=== PATIENT | female | born 1955 | race Caucasian/White ===

== ENCOUNTER 2019-12-26 17:24 | Emergency (ER) | payer BC, SELFPAY ==
[2019-12-26 17:26] VITALS: BP 146/75; PULSE 81; RESP 18; TEMP 36.8; O2SAT 98
--- NOTE | 2019-12-26 17:33 | ED.FEMALEGU ---
HPI - Female Genitourinary General Chief complaint: Urogenital-Female Stated complaint: YEAST INFECTION SYMPTOMS Time Seen by Provider: 12/26/19 17:35 Source: patient and RN notes reviewed History of Present Illness HPI Narrative: Patient is 64-year-old female that presents the urgent care with complaints of a vaginal yeast infection. Patient states that it started approximately 2 to 3 days ago after she took a dose of fluconazole approximately 3 weeks ago. Patient states that she has not been on any recent antibiotics but has been eating more chocolate and thinks that that is attributing to her yeast infection. Patient states that she has extreme itchiness and irritation but denies of any thick vaginal discharge. Patient states that she has followed up with her PCP but they have not returned her phone call to retreat the vaginal yeast infection. Denies of any dysuria, abdominal pain, blood in the urine. No other acute complaints. No acute distress noted. Patient aware of the plan of care. Related Data Home Medications Medication Instructions Recorded Confirmed Monastat Supp 12/26/19 levothyroxine 112 mcg PO DAILY 12/26/19 12/26/19 Allergies Allergy/AdvReac Type Severity Reaction Status Date / Time morphine Allergy Unknown Skin Verified 12/26/19 17:34 irritation Penicillins Allergy Unknown Skin Verified 12/26/19 17:34 irritation Review of Systems Review of Systems: Narrative: CONSTITUTIONAL: Denies fever, chills, or sweats. EYES: Denies visual changes, redness, or discharge. ENT: Denies rhinorrhea, congestion, sore throat, or otalgia. CARDIOVASCULAR: Denies chest pain, palpitations, or edema. RESPIRATORY: Denies cough or dyspnea. GASTROINTESTINAL: Denies abdominal pain, nausea, vomiting, or diarrhea. GENITOURINARY: Denies dysuria or hematuria. Reports of extreme vaginal itchiness SKIN: Denies rash or itching. MUSCULOSKELETAL: Denies back pain, joint pain, or myalgia. NEUROLOGIC: Denies headache, numbness, or weakness. All other systems reviewed are negative, except as documented in HPI. [facility] Past Medical History Medical History (Updated 12/26/19 @ 18:00 by DINO Garrido) Hyperlipidemia LDL goal <100 Hypothyroidism determined by thyroid function test Social History Social History Smoking status: Former smoker Second hand tobacco smoke exposure: No Smoking end date: 09/24/16 Alcohol intake: current Exam Narrative: Exam Narrative: GENERAL: This is a well-nourished, well-developed patient, in no apparent distress. HEAD: normocephalic, atraumatic. EYES: PERRL. Sclera clear/white. Vision is grossly intact. EARS: External ears normal NOSE: External nose normal with no obvious nasal discharge THROAT: Mucous membranes moist NECK: Neck supple CARDIOVASCULAR: Regular rate and rhythm without murmurs, gallops, or rubs. RESPIRATORY: Clear to auscultation. Breath sounds equal bilaterally. No wheezes, rales, or rhonchi. : Refused exam SKIN: warm, intact with no suspicious lesions or rash, good texture and turgor. NEURO: awake, alert, and oriented to person, place and time. There were no obvious focal neurologic abnormalities. EXTREMITIES: No clubbing, cyanosis, or edema. BACK: Negative CVA tenderness Course Vital Signs Vital signs: Vital Signs Temperature 98.2 F 12/26/19 17:26 Pulse Rate 81 12/26/19 17:26 Respiratory Rate 18 12/26/19 17:26 Blood Pressure 146/75 H 12/26/19 17:26 Pulse Oximetry 98 12/26/19 17:26 Temperature 98.2 F 12/26/19 17:26 Pulse Rate 81 12/26/19 17:26 Respiratory Rate 18 12/26/19 17:26 Blood Pressure 146/75 H 12/26/19 17:26 Pulse Oximetry 98 12/26/19 17:26 reviewed-patient is informed that they may have pre-hypertension or hypertension based on a blood pressure reading in the department. I recommend the patient call the primary care provider listed on their disch
== END 2019-12-26 18:04 | disposition home or self-care (01) ==
PROVIDERS: Emergency Provider Nurse Practitioner Family; PCP Family Medicine
DX: B37.3 Candidiasis of vulva and vagina (principal); Z87.891 Personal history of nicotine dependence; E78.5 Hyperlipidemia, unspecified; E03.9 Hypothyroidism, unspecified
CPT/HCPCS: 81003; 99213; G0463

== ENCOUNTER 2020-01-04 10:09 | Emergency (ER) | payer BC, SELFPAY ==
[2020-01-04 10:10] VITALS: BP 142/78; PULSE 88; RESP 20; TEMP 36.4; O2SAT 98
--- NOTE | 2020-01-04 10:21 | ED.GENADULT ---
HPI - General Adult General Chief complaint: Urogenital-Female Stated complaint: YEAST INFECTION Time Seen by Provider: 01/04/20 10:23 Source: patient and RN notes reviewed Mode of arrival: ambulatory Limitations: no limitations History of Present Illness HPI narrative: This is a 64 years old female presents to the office for an evaluation of re current yeast infection. Symptoms include vaginal itchiness, irritate/pain/raws and urinary pain (due to skin irritation). She also reports feeling achy/chills last night. She tried Monistat with no relief. She tried to call her doctor but they have not gotten back to her. She is adamant that this is not a UTI because she had in the past and it does not feel the same. She is not sexually active. She also has hysterectomy. I reviewed patient's previous visit 12/26/2019 HPI - Female Genitourinary General Chief complaint: Urogenital-Female Stated complaint: YEAST INFECTION SYMPTOMS Time Seen by Provider: 12/26/19 17:35 Source: patient and RN notes reviewed History of Present Illness HPI Narrative: Patient is 64-year-old female that presents the urgent care with complaints of a vaginal yeast infection. Patient states that it started approximately 2 to 3 days ago after she took a dose of fluconazole approximately 3 weeks ago. Patient states that she has not been on any recent antibiotics but has been eating more chocolate and thinks that that is attributing to her yeast infection. Patient states that she has extreme itchiness and irritation but denies of any thick vaginal discharge. Patient states that she has followed up with her PCP but they have not returned her phone call to retreat the vaginal yeast infection. Denies of any dysuria, abdominal pain, blood in the urine. No other acute complaints. No acute distress noted. Patient aware of the plan of care. Related Data Home Medications Medication Instructions Recorded Confirmed levothyroxine 112 mcg PO DAILY 12/26/19 01/04/20 Allergies Allergy/AdvReac Type Severity Reaction Status Date / Time morphine Allergy Unknown Skin Verified 01/04/20 10:19 irritation Penicillins Allergy Unknown Skin Verified 01/04/20 10:19 irritation Review of Systems Review of Systems: Narrative: CONSTITUTIONAL: Denies fever. Reports chills, achy feeling ENT: Denies congestion CARDIOVASCULAR: Denies chest pain RESPIRATORY: Denies dyspnea GASTROINTESTINAL: Denies abdominal pain, nausea, vomiting GENITOURINARY: Denies discharge SKIN: Denies rash MUSCULOSKELETAL: Denies acute back pain NEUROLOGIC: Denies lightheaded PMFSH Past Medical History Medical History (Updated 01/04/20 @ 11:30 by DINO Sanderson) Hyperlipidemia LDL goal <100 Hypothyroidism determined by thyroid function test Primary localized osteoarthritis of both knees Surgical History Surgical History (Updated 01/04/20 @ 11:30 by DINO Sanderson) Hx of hysterectomy Family History Family History Sibling Family history of thyroid disease Hypertension Grandparent Diabetes mellitus Acute myocardial infarction Mother Hypertension Family history of chronic obstructive pulmonary disease Father Family history of cardiovascular disease Family history of coronary artery disease Patient's father is in good health Social History Social History Smoking status: Former smoker Second hand tobacco smoke exposure: No Smoking end date: 09/24/16 Alcohol intake: current Comments At time of signature, I agree with nursing past medical, surgical, social and family history. There is no relevant family history pertinent to the presenting complaint. Exam Narrative: Exam Narrative: GENERAL: This is a well-nourished, well-developed patient, in no apparent distress. CARDIOVASCULAR: Regular rate and rhythm without murmurs, gallops, or rubs. RES
== END 2020-01-04 10:56 | disposition home or self-care (01) ==
PROVIDERS: Emergency Provider Nurse Practitioner; PCP Family Medicine
DX: N76.0 Acute vaginitis (principal); Z87.891 Personal history of nicotine dependence; E78.5 Hyperlipidemia, unspecified; E03.9 Hypothyroidism, unspecified; M17.0 Bilateral primary osteoarthritis of knee
CPT/HCPCS: 87661; 99214; G0463

== ENCOUNTER → 2020-11-27 00:49 | Outpatient (CLI) | payer BC, SELFPAY ==
[2020-11-27 19:47] LABS: SARS-CoV-2 RNA PCR Negative
== END ==
PROVIDERS: PCP Physician Assistant; Visit Provider Internal Medicine Gastroenterology
DX: Z01.812 Encounter for preprocedural laboratory examination (principal); Z20.822 Contact with and (suspected) exposure to COVID-19
CPT/HCPCS: C9803; U0003; U0005

== ENCOUNTER 2020-11-30 01:29 | Day surgery (SDC) | payer BC, SELFPAY ==
[2020-11-19 13:24] VITALS: BMI 37.0
[2020-11-30] MEDS: LACTATED RINGERS 1,000 ML 150 ML IV CONT (07:33)
[2020-11-30 07:36] VITALS: BP 150/82; PULSE 105; RESP 20; TEMP 37.2; O2SAT 97; BMI 35.2
--- NOTE | 2020-11-30 07:51 | PM.HPGS ---
History of Present Illness History of Present Illness Consent: Risks, benefits, and alternatives have been discussed and questions answered. Patient agrees to proceed with procedure. Chief complaint: Neoplasm Screening Narrative: Lindsay Landry is a 65 year old female Referred for colon cancer screening Review of Systems Review of Systems: All systems reviewed & are unremarkable except as noted in HPI and below PMFSH Past Medical History Medical History Hyperlipidemia LDL goal <100 Hypothyroidism determined by thyroid function test Kidney stone Obesity Primary localized osteoarthritis of both knees Surgical History Surgical History H/O section History of dilation and curettage numerous after miscarriages Hx of hysterectomy Family History Family History Sibling Family history of thyroid disease Hypertension Grandparent Diabetes mellitus Acute myocardial infarction Mother Hypertension Family history of chronic obstructive pulmonary disease Father Family history of cardiovascular disease Family history of coronary artery disease Patient's father is in good health Social History Social History Smoking status: Never smoker Second hand tobacco smoke exposure: No Smoking end date: 09/24/16 Additional smoking assessment comments: spouse smokes Alcohol intake: never Substance use: never Substance use type: does not use Living arrangements: with family Spiritual care concerns: No Meds Home Medications and Allergies Home Medications Medication Instructions Recorded Confirmed Type diclofenac sodium 75 mg 75 mg PO BID PRN #180 tablet 08/25/20 11/19/20 Rx tablet,delayed release rosuvastatin 10 mg tablet 10 mg PO DAILY #90 tablet 10/08/20 11/19/20 Rx ascorbic acid (vitamin C) 500 mg 500 mg PO DAILY 10/21/20 11/19/20 History tablet calcium carbonate 390 mg calcium 390 mg PO DAILY 10/21/20 11/19/20 History (1,000 mg) tablet cholecalciferol (vitamin D3) 10 10 mcg PO DAILY 10/21/20 11/19/20 History mcg (400 unit) capsule vitamin B complex 1 tablet PO DAILY 10/21/20 11/19/20 History sodium,potassium,mag sulfates 17.5 See Rx Instructions PO .COMPLEX 11/18/20 Rx gram-3.13 gram-1.6 gram oral soln #354 ml levothyroxine [Synthroid] 125 mcg PO DAILY 11/19/20 11/19/20 History Allergies Allergy/AdvReac Type Severity Reaction Status Date / Time morphine Allergy Unknown Skin Verified 11/30/20 07:34 irritation Penicillins Allergy Unknown Skin Verified 11/30/20 07:34 irritation Vital Signs Vital Signs - 24 hr 11/30/20 07:36 Temperature 37.2 C Pulse Rate 105 H Respiratory Rate 20 Blood Pressure 150/82 H Pulse Oximetry 97 Exam Resp: Auscultation: clear to auscultation bilaterally Cardio: Rate: regular rate Rhythm: regular rhythm GI: GI Palp: Yes Soft to palpation and No Tenderness to palpation present (GI) Assessment and Plan Assessment and plan (1) Colon cancer screening: Code(s): Z12.11 - Encounter for screening for malignant neoplasm of colon Status: Acute Assessment and Plan: Colonoscopy with possible biopsy or polypectomy or cautery or injection of substances.
--- NOTE | 2020-11-30 08:26 | WPDANESEPPF ---
Anes - Initial Pre Proc Eval Procedure: Operation Date: 11/30/20 08:30 Proposed Procedures p Screening Colonoscopy - Wander Puente MD Date/Time: 11/30/20 08:26 Surgeon: Wander Puente MD Pre Op Diagnosis: Neoplasm Screening Patient Data Age: 65 Gender: F Height: 5 ft 3 in Weight: 90.1 kg Last Vital Signs Temp 37.2 C 11/30/20 07:36 Pulse 105 H 11/30/20 07:36 Resp 20 11/30/20 07:36 BP 150/82 H 11/30/20 07:36 Pulse Ox 97 11/30/20 07:36 Allergies Allergy/AdvReac Type Severity Reaction Status Date / Time morphine Allergy Unknown Skin Verified 11/30/20 07:34 irritation Penicillins Allergy Unknown Skin Verified 11/30/20 07:34 irritation Home Medications Medication Instructions Recorded Confirmed Type diclofenac sodium 75 mg 75 mg PO BID PRN #180 tablet 08/25/20 11/19/20 Rx tablet,delayed release rosuvastatin 10 mg tablet 10 mg PO DAILY #90 tablet 10/08/20 11/19/20 Rx ascorbic acid (vitamin C) 500 mg 500 mg PO DAILY 10/21/20 11/19/20 History tablet calcium carbonate 390 mg calcium 390 mg PO DAILY 10/21/20 11/19/20 History (1,000 mg) tablet cholecalciferol (vitamin D3) 10 10 mcg PO DAILY 10/21/20 11/19/20 History mcg (400 unit) capsule vitamin B complex 1 tablet PO DAILY 10/21/20 11/19/20 History sodium,potassium,mag sulfates 17.5 See Rx Instructions PO .COMPLEX 11/18/20 Rx gram-3.13 gram-1.6 gram oral soln #354 ml levothyroxine [Synthroid] 125 mcg PO DAILY 11/19/20 11/19/20 History Patient hx anesthesia problems: none Family hx anesthesia problems: none PMFSH Past Medical History Medical History Hyperlipidemia LDL goal <100 Hypothyroidism determined by thyroid function test Kidney stone Obesity Primary localized osteoarthritis of both knees Surgical History Surgical History H/O section History of dilation and curettage numerous after miscarriages Hx of hysterectomy Family History Family History Sibling Family history of thyroid disease Hypertension Grandparent Diabetes mellitus Acute myocardial infarction Mother Hypertension Family history of chronic obstructive pulmonary disease Father Family history of cardiovascular disease Family history of coronary artery disease Patient's father is in good health Social History Social History Smoking status: Never smoker Second hand tobacco smoke exposure: No Smoking end date: 09/24/16 Additional smoking assessment comments: spouse smokes Alcohol intake: never Substance use: never Substance use type: does not use Living arrangements: with family Spiritual care concerns: No Anes - Eval Final PreProcedure Day of Procedure 11/30/20 08:26 Patient weight: obese Heart: regular rate and rhythm Lungs: clear to auscultation Airway: Mallampati scale class II Neurological: alert and oriented Last oral intake: >/= 8 hours ASA classification: III Emergent: no Anesthetic plan: proceed Anesthesia type and monitoring: general GIVS and standard monitoring Informed Consent: The patient's anesthetic plan and its attendant risks and benefits were discussed with the patient/family/POA. Questions were solicited and answers provided to the satisfaction of the patient/family/POA.
[2020-11-30 08:50] VITALS: BP 106/56; PULSE 80; RESP 20; O2SAT 100
[2020-11-30 09:00] VITALS: BP 122/52; PULSE 78; RESP 18; O2SAT 100
[2020-11-30 09:10] VITALS: BP 126/57; PULSE 70; RESP 18; O2SAT 100
== END 2020-11-30 09:30 | disposition home or self-care (01) ==
PROVIDERS: PCP Physician Assistant; Visit Provider Internal Medicine Gastroenterology
PROC: 0DJD8ZZ Inspection of Lower Intestinal Tract, Via Natural or Artificial Opening Endoscopic (ICD-10-PCS; CPT 45378; principal; 2020-11-30 08:30)
DX: Z12.11 Encounter for screening for malignant neoplasm of colon (principal); K62.1 Rectal polyp; K57.30 Diverticulosis of large intestine without perforation or abscess without bleeding; E78.5 Hyperlipidemia, unspecified; E03.9 Hypothyroidism, unspecified; M17.0 Bilateral primary osteoarthritis of knee; E66.9 Obesity, unspecified; Z68.35 Body mass index [BMI] 35.0-35.9, adult
CPT/HCPCS: 45380; 88305; J2704; J7120

== ENCOUNTER 2021-01-01 12:48 | Emergency (ER) | payer BC, SELFPAY ==
--- NOTE | 2021-01-01 12:57 | ED.GENADULT ---
HPI - General Adult General Chief complaint: Urogenital-Female Stated complaint: URINARY PRESSURE Time Seen by Provider: 01/01/21 12:57 Source: patient Mode of arrival: ambulatory Limitations: no limitations History of Present Illness HPI narrative: 65-year-old female patient presents to the [facility] with complaints of urinary symptoms that started yesterday. Patient states she has had a lot of lower abdominal pressure along with urgency, frequency and decrease in urination production. Patient states she has had a little bit of burning when she did urinate. Patient complains of a little bit of low back pain as well as some chills but denies fever, body aches. Denies any nausea, vomiting or diarrhea. Patient states she did take AZO yesterday for her symptoms. Related Data Home Medications Medication Instructions Recorded Confirmed ascorbic acid (vitamin C) 500 mg 500 mg PO DAILY 10/21/20 01/01/21 tablet calcium carbonate 390 mg calcium 390 mg PO DAILY 10/21/20 01/01/21 (1,000 mg) tablet cholecalciferol (vitamin D3) 10 10 mcg PO DAILY 10/21/20 01/01/21 mcg (400 unit) capsule vitamin B complex 1 tablet PO DAILY 10/21/20 01/01/21 levothyroxine [Synthroid] 125 mcg PO DAILY 11/19/20 01/01/21 Allergies Allergy/AdvReac Type Severity Reaction Status Date / Time morphine Allergy Unknown Skin Verified 01/01/21 13:09 irritation Penicillins Allergy Unknown Skin Verified 01/01/21 13:09 irritation Review of Systems Review of Systems: Narrative: CONSTITUTIONAL: Denies fever, chills, or sweats. EYES: Denies visual changes, redness, or discharge. ENT: Denies rhinorrhea, congestion, sore throat, or otalgia. CARDIOVASCULAR: Denies chest pain, palpitations, or edema. RESPIRATORY: Denies cough or dyspnea. GASTROINTESTINAL: Denies abdominal pain, nausea, vomiting, or diarrhea. GENITOURINARY: Positive dysuria, denies hematuria. SKIN: Denies rash or itching. MUSCULOSKELETAL: Denies back pain, joint pain, or myalgia. NEUROLOGIC: Denies headache, numbness, or weakness. PSYCHIATRIC: Denies anxiety or depression. [facility] Past Medical History Medical History Hyperlipidemia LDL goal <100 Hypothyroidism determined by thyroid function test Kidney stone Obesity Primary localized osteoarthritis of both knees Surgical History Surgical History H/O section History of dilation and curettage numerous after miscarriages Hx of hysterectomy Family History Family History Sibling Family history of thyroid disease Hypertension Grandparent Diabetes mellitus Acute myocardial infarction Mother Hypertension Family history of chronic obstructive pulmonary disease Father Family history of cardiovascular disease Family history of coronary artery disease Patient's father is in good health Social History Social History Smoking status: Never smoker Second hand tobacco smoke exposure: No Smoking end date: 09/24/16 Additional smoking assessment comments: spouse smokes Alcohol intake: never Substance use: never Substance use type: does not use Spiritual care concerns: No Comments At the time of my signature I agree with nursing past medical history, surgical, social, and family history. There is no relevant family history pertinent to the presenting complaint. Exam Narrative: Exam Narrative: GENERAL: Well-appearing, well-nourished, and in no acute distress. HEAD: Normocephalic, atraumatic. EYES: PERRLA and EOMI. ENT: Nares clear, no rhinorrhea or epistaxis. Mucous membranes moist. NECK: Supple. No lymphadenopathy CHEST: Clear to auscultation. No respiratory distress. HEART: Regular rate and rhythm. No murmur heard. Normal peripheral pulses. ABDOMEN: Soft, nontender, nondistended,
[2021-01-01 13:03] VITALS: BP 101/58; PULSE 80; RESP 16; TEMP 36.6; O2SAT 98
== END 2021-01-01 13:31 | disposition home or self-care (01) ==
PROVIDERS: Emergency Provider Nurse Practitioner Family
DX: N30.01 Acute cystitis with hematuria (principal); E78.5 Hyperlipidemia, unspecified; E03.9 Hypothyroidism, unspecified; M17.0 Bilateral primary osteoarthritis of knee; E66.9 Obesity, unspecified; Z68.33 Body mass index [BMI] 33.0-33.9, adult
CPT/HCPCS: 81003; 87086; 87088; 99213; G0463

== ENCOUNTER 2021-02-01 07:33 | Outpatient (CLI) | payer BC, SELFPAY ==
--- NOTE | ~2021-02-01 | MM_ITS ---
EXAMINATION: MM screening soledad BI w jacqueline HISTORY: Screening mammogram TECHNIQUE: Craniocaudal and mediolateral oblique 3-D tomosynthesis images were obtained and synthetic 2-D images were generated. CAD analysis was submitted and interpreted. COMPARISON: 12/24/2015, 12/17/2015, 1019 213 BREAST PARENCHYMAL COMPOSITION: The breasts are heterogeneously dense, which may obscure small masses . FINDINGS: RIGHT BREAST: There is no evidence of suspicious mass, calcification, or architectural distortion to suggest malignancy. There has been no significant interval change. LEFT BREAST: There are indeterminate grouped calcifications in the posterior third of the outer breas t best appreciated on the craniocaudal view. IMPRESSION: 1. Indeterminate left breast calcifications. 2. Magnification views are recommended. BI-RADS Category 0: Incomplete: Needs additional imaging evaluation. Reviewed, dictated and finalized at location A.
--- NOTE | ~2021-02-01 | DEXA_ITS ---
Bone Density Report Name: Lindsay Landry Age: 65 Sex: Female Ethnicity: White Date of : 1955 Indication: postmenopausal osteoporosis; height loss; hysterectomy; Referring Provider: Raquel Grove Study: Bone densitometry was performed. Exam Date: February 01, 2021 Accession number: [id number] Bone Density: Region BMD T-score Z-score Classification AP Spine (L1-L4) 0.729 -2.9 -1.2 Osteoporosis Femoral Neck (Left) 0.576 -2.5 -1.0 Osteoporosis Total Hip (Left) 0.767 -1.4 -0.3 Osteopenia Total Hip Bilateral Avg 0.725 -1.7 -0.7 Osteopenia Femoral Neck (Right) 0.596 -2.3 -0.8 Osteopenia Total Hip (Right) 0.681 -2.1 -1.0 Osteopenia World Health Organization criteria for BMD impression classify patients as: Normal (T-score at or above -1.0), Osteopenia (T-score between -1.0 and -2.5), or Osteoporosis (T-score at or below -2.5). 10-year Fracture Risk: FRAX not reported because: Some T-score for Spine Total or Hip Total or Femoral Neck at or below -2.5 Previous Exams: Region Exam Age BMD T-score BMD Change BMD Change Date g/cm2 vs Baseline vs Previous AP Spine(L1-L4) 02/01/2021 65 0.729 -2.9 -0.029(-3.8%)# -0.047(-6.0%)* 12/17/2015 60 0.775 -2.5 0.018(2.3%)# 0.018(2.3%)# 07/12/2013 58 0.758 -2.6 Total Hip(Left) 02/01/2021 65 0.767 -1.4 -0.106(-12.2%) -0.037(-4.7%)* 12/17/2015 60 0.804 -1.1 -0.069(-7.9%)# -0.069(-7.9%)# 07/12/2013 58 0.873 -0.6 Total Hip(Right) 02/01/2021 65 0.681 -2.1 -0.167(-19.6%) -0.122(-15.2%) 12/17/2015 60 0.803 -1.1 -0.044(-5.2%)# -0.044(-5.2%)# 07/12/2013 58 0.848 -0.8 *Denotes significance at 95% confidence level, LSC for AP Spine = 0.022 g/cm2, LSC for Total Hip = 0.027 g/cm2 Clinical Information Provided by Patient: Has used the following medications: Fosamax (i.e. alendronate), Vitamin D, Calcium Has the following medical conditions: Hysterectomy Patient maximum height was 63 Menopause Age: 35 No regular weight bearing exercise Does not regularly consume dairy products Onset of menses at age 15 Number of children 1 Impression: The patient has osteoporosis, based on the Total Spine T-score. The BMD for the AP Spine(L1-L4) decreased, changing by -6.0% since the last DXA exam. The BMD for the Total Hip(Left) decreased, changing by -4.7% since the last DXA exam. The BMD for the Total Hip(Right) decreased, changing by -15.2% since the last DXA exam. Discussion: INCREASED RISK OF FRACTU
== END 2021-02-01 07:34 | disposition home or self-care (01) ==
PROVIDERS: Visit Provider Student in an Organized Health Care Education/Training Program
DX: Z12.31 Encounter for screening mammogram for malignant neoplasm of breast (principal); Z78.0 Asymptomatic menopausal state; R92.8 Other abnormal and inconclusive findings on diagnostic imaging of breast; M81.0 Age-related osteoporosis without current pathological fracture; M85.852 Other specified disorders of bone density and structure, left thigh; M85.851 Other specified disorders of bone density and structure, right thigh
CPT/HCPCS: 77063; 77067; 77080

== ENCOUNTER 2021-03-01 11:12 | Outpatient (CLI) | payer BC, SELFPAY ==
--- NOTE | ~2021-03-01 | MMUS_ITS ---
EXAMINATION: MM diagnostic mammo unilat LT, US breast LT limited HISTORY: Indeterminate grouped microcalcifications in posterior third of upper outer left breast TECHNIQUE: Additional ML 3-D tomosynthesis images of the right breast were performed and synthetic 2- D images were generated. Magnification views of right breast. CAD analysis was submitted and interpre berry. High resolution upper outer quadrant left breast ultrasound was performed. COMPARISON: 02/01/2021, 12/17/2015, 07/12/2013 bilateral digital screening mammogram examinations FINDINGS: MAMMOGRAPHIC FINDINGS: There is an approximately 1.6 cm linear array of subtle pleomorphic calcifications including a linear and slightly branching microcalcifications. These are indeterminate and warrant biopsy. Stereotactic biopsy is recommended. Scattered benign calcifications are noted elsewhere, including calcified microhematomas and probable partially calcified fibroadenomas. ULTRASOUND: 12:00 3 cm from nipple: Parallel 2.2 x 5.9 mm circumscribed hypoechoic lesion without internal vascul arity or posterior shadowing Unremarkable lymph nodes are noted at 1:00 10 cm from the nipple and 2:00 9 cm from the nipple and 2: 00 11 cm from the nipple. No suspicious mass or shadowing is identified. IMPRESSION: 1. Indeterminate linear array of subtle pleomorphic microcalcifications in the upper outer quadrant o f the left breast posteriorly 2. Stereotactic biopsy is recommended BI-RADS category 4, suspicious findings. Dr. Dover telephoned the report and stereotactic biopsy recommendation on 03/12/2021 at 0931 hours to Roland Grove's [employer]'s voicemail. Reviewed, dictated and finalized at location A. IMPRESSION: 1. Indeterminate linear array of subtle pleomorphic microcalcifications in the upper outer quadrant of the left breast posteriorly 2. Stereotactic biopsy is recommended BI-RADS category 4, suspicious findings. Dr. Dover telephoned the report and stereotactic biopsy recommendation on 021 [address] Grove's [employer]'s voicemail.
== END 2021-03-01 11:13 | disposition home or self-care (01) ==
PROVIDERS: Visit Provider Student in an Organized Health Care Education/Training Program
DX: R92.8 Other abnormal and inconclusive findings on diagnostic imaging of breast (principal)
CPT/HCPCS: 76642; 77065

== ENCOUNTER 2021-07-06 07:00 | Outpatient (CLI) | payer BC, SELFPAY ==
--- NOTE | 2021-07-06 07:34 | ECG_ITS ---
Measurements Intervals [place] Rate: 59 P: 61 NE: 192 QRS: 37 QRSD: 86 T: 59 QT: 399 QTc: 397 Interpretive Statements SINUS BRADYCARDIA BASELINE WANDER- I, II, AVR, AVL, AVF BORDERLINE ECG Electronically Signed On 07-06-2021 8:08:17 CDT by Erick Forte D.O.
== END 2021-07-06 07:01 | disposition home or self-care (01) ==
PROVIDERS: PCP Family Medicine; Referring Provider Orthopaedic Surgery; Visit Provider Family Medicine
DX: E78.2 Mixed hyperlipidemia (principal); R94.31 Abnormal electrocardiogram [ECG] [EKG]
CPT/HCPCS: 93005

== ENCOUNTER 2021-07-15 07:51 | Outpatient (CLI) | payer BC, SELFPAY ==
[2021-07-15 09:01] LABS: Basophils Absolute Auto 0.1 K/mm3 (0.0-0.1); Eosinophils Absolute Auto 0.2 K/mm3 (0-0.3); Eosinophils Percent Auto 2.1 % (0-4.4); Hematocrit 45.5 % (37.0-47.0); Immature Granulocyte Absolute 0.03 K/mm3 (0.00-0.031); Immature Granulocyte Percent A 0.4 % (0-0.5); Lymphocytes Absolute Auto 2.71 K/mm3 (0.9-3.2); Lymphocytes Percent Auto 37.7 % (18.3-44.2); Mean Corpuscular Hemoglobin 32.3 pg (26-34); Mean Corpuscular Volume 97.8 fl (80-100); Mean Platelet Volume 9.6 fl (7.4-10.4); Monocytes Absolute Auto 0.7 K/mm3 (0.1-0.6); Monocytes Percent Auto 9.6 % (2.6-8.5); Neutrophils Absolute Auto 3.5 K/mm3 (1.3-6.7); Neutrophils Percent Auto 49.2 % (45.5-73.1); Platelet Count Result 231 k/mm3 (150-375); Red Blood Count 4.65 M/mm3 (4.2-5.4); Red Cell Distribution Width 12.9 % (11.5-14.5); White Blood Count 7.2 K/mm3 (4.5-10.0)
[2021-07-15 09:12] LABS: Sodium 140 mmol/L (137-145)
[2021-07-15 09:15] LABS: Glucose 81 mg/dL (65-110)
[2021-07-15 10:04] LABS: Urine Cotinine POSITIVE
== END 2021-07-15 07:52 | disposition home or self-care (01) ==
LOC: ANHSURGERY 07:56
PROVIDERS: Anesthesiology; PCP Family Medicine; Visit Provider Orthopaedic Surgery
DX: M17.11 Unilateral primary osteoarthritis, right knee (principal); E87.0 Hyperosmolality and hypernatremia; Z01.818 Encounter for other preprocedural examination
CPT/HCPCS: 80307; 82947; 84295; 85025; 87081

== ENCOUNTER 2021-08-19 08:29 | Outpatient (CLI) | payer BC, SELFPAY ==
[2021-08-19 09:38] LABS: Urine Cotinine NEGATIVE
== END 2021-08-19 08:30 | disposition home or self-care (01) ==
LOC: ANHLAB 08:32
PROVIDERS: PCP Family Medicine; Visit Provider Orthopaedic Surgery
DX: Z87.891 Personal history of nicotine dependence (principal); Z01.818 Encounter for other preprocedural examination
CPT/HCPCS: 80307

== ENCOUNTER 2021-09-19 08:19 | Outpatient (CLI) | payer BC, SELFPAY ==
[2021-09-19 08:52] LABS: Basophils Absolute Auto 0.1 K/mm3 (0.0-0.1); Eosinophils Absolute Auto 0.2 K/mm3 (0-0.3); Eosinophils Percent Auto 3.3 % (0-4.4); Hematocrit 40.4 % (37.0-47.0); Hemoglobin 13.2 g/dL (12.0-15.0); Immature Granulocyte Absolute 0.04 K/mm3 (0.00-0.031); Immature Granulocyte Percent A 0.8 % (0-0.5); Lymphocytes Absolute Auto 2.22 K/mm3 (0.9-3.2); Lymphocytes Percent Auto 43.6 % (18.3-44.2); Mean Corpuscular HGB Conc 32.7 g/dl (32-36); Mean Corpuscular Hemoglobin 31.9 pg (26-34); Mean Corpuscular Volume 97.6 fl (80-100); Mean Platelet Volume 9.4 fl (7.4-10.4); Monocytes Absolute Auto 0.5 K/mm3 (0.1-0.6); Monocytes Percent Auto 8.8 % (2.6-8.5); Neutrophils Absolute Auto 2.2 K/mm3 (1.3-6.7); Neutrophils Percent Auto 42.5 % (45.5-73.1); Platelet Count Result 231 k/mm3 (150-375); Red Blood Count 4.14 M/mm3 (4.2-5.4); Red Cell Distribution Width 12.6 % (11.5-14.5); White Blood Count 5.1 K/mm3 (4.5-10.0)
[2021-09-19 08:55] LABS: Albumin Level 3.9 g/dL (3.5-5.1); Estimated Glomerular Filt Rate > 60; Glucose 116 mg/dL (65-110)
== END 2021-09-19 08:20 | disposition home or self-care (01) ==
LOC: ANHSURGERY 08:22
PROVIDERS: PCP Family Medicine; Visit Provider Orthopaedic Surgery
DX: M17.11 Unilateral primary osteoarthritis, right knee (principal); Z01.818 Encounter for other preprocedural examination
CPT/HCPCS: 36415; 82040; 82565; 82947; 85025; 86850; 86900; 86901

== ENCOUNTER 2021-10-03 12:49 | Outpatient (CLI) | payer BC, SELFPAY ==
[2021-10-03 13:57] LABS: Hemoglobin A1C 5.4 % (<5.7)
== END 2021-10-03 12:50 | disposition home or self-care (01) ==
LOC: ANHSURGERY 12:52
PROVIDERS: PCP Family Medicine; Visit Provider Orthopaedic Surgery
DX: M17.11 Unilateral primary osteoarthritis, right knee (principal); Z01.818 Encounter for other preprocedural examination
CPT/HCPCS: 36415; 83036; 86850; 86900; 86901; 87081

== ENCOUNTER 2021-10-06 00:09 | Day surgery (SDC) | payer BC, SELFPAY ==
[2021-07-15 08:14] VITALS: BP 116/44; PULSE 84; RESP 18; TEMP 36.8; O2SAT 98; BMI 32.8
[2021-09-15 12:02] VITALS: BMI 32.8
--- NOTE | 2021-09-15 12:16 | PC.NURSE ---
Report to the Outpatient Waiting Room, entrance under the green pavilion located off [facility], at time 8:30 on date 09/27/21. OR Time: 10:30. - You and your visitor will be asked a series of questions to screen for COVID 19 for your protection. - A mask is required within the hospital. - Only one visitor is allowed at this time. Patient visitors will be guided where to wait when not with patient. Preoperative COVID Testing Requirements: No COVID Test needed if: (proof is required; if not received patient will have Rapid Test prior to entry) - Patient has received COVID Vaccine at least 14 days prior to procedure date or - Patient has positive COVID test result within last 90 days of surgery date. COVID Test needed if above criteria is not met If not COVID vaccinated a COVID test must be conducted within 72 hours of surgery and patient is asked to isolate self from time of testing until procedure. You will go to the [employer] [facility] for your COVID testing. The [employer] [facility] site is located at the corner of [address] [facility]. You will only be called if COVID results are positive and your surgeon may reschedule your elective surgery date. Patients may have clear liquids (water, carbonated beverages, clear teas, apple juice) until 3 hours prior to surgery with a maximum of 20 ounces. - No food from midnight until time of surgery - Infants may have breast milk until 4 hours before surgery, formula 6 hours prior to surgery. - Children will be allowed to drink immediately following surgery. If applicable, please bring a bottle or sippy cup to assist with drinking. Juice, water, soda, and popsicles are readily available. For infants on formula, please bring formula the day of surgery. Pacifiers are allowed. Take the following medications with a SIP of water the morning of surgery: LEVOTHYROXINE, PAIN PILL IF NEEDED Medications to discontinue per physician: VITAMINS/SUPPLEMENTS Date to take last dose: 09/23/21 STOP DICLOFENAC 09/19/[address] BYRNE Please no make-up, nail divehi, hairspray, perfume, deodorant, or body powder the day of surgery. No jewelry (including any body piercings) or valuables the day of surgery, leave them at home. Please take a shower or bath the night before, or the morning of, surgery with an antibacterial soap. Wear comfortable, loose fitting clothing. Children are encouraged to wear pajamas. - Jewelry must be removed prior to entering the operating room. Rings and piercings that are not removed may be cut off. - The hospital will not accept responsibility for valuables. - Please leave all valuables, including medications, at home the day of surgery. If you are going home after surgery, a licensed hog driver must drive you home. - NO public transportation without another adult. - We recommend that an adult stay with you for 24 hours following discharge. - We also recommend that you do not drive, make important decision, drink alcoholic beverages, or take any drugs that were not prescribed by your health care provider for at least 24 hours after your discharge time. For Pediatric surgeries, we recommend two adults accompany the child home (only one inside the building at this time). Follow any additional instructions given to you from your surgeon. Telephone instructions given to NAVYA VIGIL and asked if any additional questions and then verbalized understanding. Patient advised to call surgeon office or pre surgery nurse liaison [phone] if any additional questions.
--- NOTE | 2021-10-03 11:35 | PC.NURSE ---
Report to the Outpatient Waiting Room, entrance under the green pavilion located off [facility], at time __6:00AM on date __10/06/21 . OR Time: ___7:30AM . - You and your visitor will be asked a series of questions to screen for COVID 19 for your protection. - A mask is required within the hospital. - Only one visitor is allowed at this time. Patient visitors will be guided where to wait when not with patient. Preoperative COVID Testing Requirements: No COVID Test needed if: (proof is required; if not received patient will have Rapid Test prior to entry) - Patient has received COVID Vaccine at least 14 days prior to procedure date or - Patient has positive COVID test result within last 90 days of surgery date. COVID Test needed if above criteria is not met If not COVID vaccinated a COVID test must be conducted within 72 hours of surgery and patient is asked to isolate self from time of testing until procedure. You will go to the [facility] for your COVID testing. The [facility] is located at the corner of [address] [facility]. You will only be called if COVID results are positive and your surgeon may reschedule your elective surgery date. Patients may have clear liquids (water, carbonated beverages, clear teas, apple juice) until 3 hours prior to surgery with a maximum of 20 ounces. - No food from midnight until time of surgery - Infants may have breast milk until 4 hours before surgery, infant formula 6 hours prior to surgery. - Children will be allowed to drink immediately following surgery. If applicable, please bring a bottle or sippy cup to assist with drinking. Juice, water, soda, and popsicles are readily available. For infants on formula, please bring formula the day of surgery. Pacifiers are allowed. Take the following medications with a SIP of water the morning of surgery: ____LEVOTHYROXINE, TRAMADOL NEEDED FOR PAIN Medications to discontinue per physician DICLOFENAC 7 DAYS PRE-OP(PT SAYS SHE HAS ALREADY STOPPED) & ALL VITAMINS/SUPPLEMENTS 3 DAYS PRE-OP____ Date to take last dose 10/03/21 Please no make-up, nail japanese, hairspray, perfume, deodorant, or body powder the day of surgery. No jewelry (including any body piercings) or valuables the day of surgery, leave them at home. Please take a shower or bath the night before, or the morning of, surgery with an antibacterial soap. Wear comfortable, loose fitting clothing. Children are encouraged to wear pajamas. - Jewelry must be removed prior to entering the operating room. Rings and piercings that are not removed may be cut off. - The hospital will not accept responsibility for valuables. - Please leave all valuables, including medications, at home the day of surgery. If you are going home after surgery, a licensed public transit trolley driver must drive you home. - NO public transportation without another adult. - We recommend that an adult stay with you for 24 hours following discharge. - We also recommend that you do not drive, make important decision, drink alcoholic beverages, or take any drugs that were not prescribed by your health care provider for at least 24 hours after your discharge time. For Pediatric surgeries, we recommend two adults accompany the child home (only one inside the building at this time). Follow any additional instructions given to you from your surgeon. Telephone instructions given to ___PATIENT and asked if any additional questions and then verbalized understanding. Patient advised to call surgeon office or pre surgery nurse liaison [phone] if any additional questions.
--- NOTE | 2021-10-05 08:39 | WPDANESEPPF ---
Anes - Initial Pre Proc Eval Procedure: Operation Date: 10/06/21 07:30 Proposed Procedures p Right Total Knee Arthroplasty - Jose Eduardo Frank MD Date/Time: 10/05/21 08:39 Surgeon: Jose Eduardo Frank MD Pre Op Diagnosis: Primary OA right knee Patient Data Age: 66 Gender: F Height: 1.6 m Weight: 83.9 kg Last Vital Signs Temp 36.8 C 07/15/21 08:14 Pulse 84 07/15/21 08:14 Resp 18 07/15/21 08:14 BP 116/44 L 07/15/21 08:14 Pulse Ox 98 07/15/21 08:14 Allergies Allergy/AdvReac Type Severity Reaction Status Date / Time chlorhexidine Allergy Mild Rash Verified 10/06/21 06:42 [From Hibiclens] morphine Allergy Unknown Skin Verified 10/06/21 06:42 irritation Penicillins Allergy Unknown Skin Verified 10/06/21 06:42 irritation Home Medications Medication Instructions Recorded Confirmed Type diclofenac sodium 75 mg 75 mg PO BID PRN #180 tablet 08/25/20 10/06/21 Rx tablet,delayed release ascorbic acid (vitamin C) 1,000 mg 1 g PO QAM 06/22/21 10/06/21 History tablet vitamin E (dl, acetate) 180 mg 180 mg PO DAILY 06/22/21 10/06/21 History (400 unit) capsule levothyroxine 125 mcg tablet 125 mcg PO DAILY #90 tablet 07/08/21 10/06/21 Rx acetaminophen [Tylenol Ex Str 1,000 mg PO Q6H PRN 07/15/21 10/06/21 History Arthritis Pain] calcium carbonate-vitamin D3 1 tablet PO QAM 07/15/21 10/06/21 History [Calcarb 600 With Vitamin D] ergocalciferol (vitamin D2) 50,000 unit PO WEEKLY 07/15/21 10/06/21 History tamoxifen 20 mg PO QAM 07/15/21 10/06/21 History tramadol 50 mg tablet 50 mg PO Q6H PRN #30 tablet 09/09/21 10/06/21 Rx rosuvastatin 10 mg tablet 10 mg PO QAM #90 tablet 09/21/21 10/06/21 Rx Patient hx anesthesia problems: none Family hx anesthesia problems: none Results Review: All pre-operative results and documents have been reviewed as part of the pre-operative evaluation. [facility] Past Medical History Medical History (Updated 09/21/21 @ 11:14 by Jose Eduardo Frank MD) History of nicotine use Hyperlipidemia LDL goal <100 Hypothyroidism determined by thyroid function test Kidney stone Obesity On statin therapy Primary localized osteoarthritis of both knees Xanthelasma of eyelid Surgical History Surgical History H/O section History of dilation and curettage numerous after miscarriages Hx of hysterectomy Family History Family History Sibling Family history of thyroid disease Hypertension Grandparent Diabetes mellitus Acute myocardial infarction Mother Hypertension Family history of chronic obstructive pulmonary disease Father Family history of cardiovascular disease Family history of coronary artery disease Patient's father is in good health Other Osteoporosis Social History Social History Smoking packs per day: 1 Smoking cigarettes per day: 20.0 Years smoked: 20 Smoking pack-years: 20.00 Smoking status: Former smoker Tobacco type: cigarettes Second hand tobacco smoke exposure: No Smoking end date: 09/24/16 Additional smoking assessment comments: STATES QUIT 2017 - OCCASIONALLY USES [employer] Alcohol intake: current Alcohol use details: STATES MAYBE 2 DRINKS/YEAR Substance use: never Substance use type: does not use Living arrangements: with family Spiritual care concerns: No Anes - Eval Final PreProcedure Day of Procedure 10/05/21 08:39 Patient weight: obese Heart: regular rate and rhythm Lungs: clear to auscultation and normal air movement Airway: Mallampati scale class II Neurological: alert and oriented Last oral intake: >/= 8 hours ASA classification: III Emergent: no Anesthetic plan: proceed Anesthesia type and monitoring: general LMA and standard monitoring Results Review: All pre-operative results and d
--- NOTE | 2021-10-05 08:39 | WPDANESPNB ---
Anes - Peripheral Nerve Block Date/Time: 10/05/21 08:39 I have discussed with the patient/family/POA the placement of a peripheral nerve block for post-operative pain management, including associated risks, benefits, complications, and side effects. Alternative methods of post-operative analgesia were detailed. Questions were solicited and answers provided to the satisfaction of the patient/family/POA. Time-Out: A pre-procedural Time-Out was completed immediately before starting the procedure and confirmed: Patient Identification, Site, Procedure, Patient Position and the Availability of Requisite Equipment. Clinical Indications: Acute post-operative pain management requested by the operative surgeon. Nerve Block Insertion Note Anes-nerve block: adductor canal right Patient position: supine Skin prep: chlorhexidine Needle: 22 gauge, stimulating, insulated echogenic needle. Needle length: 80 mm Technique: ultrasound Injectate: bupivacaine 0.5% with epi 5 mcg/ml (30cc - no epi) Observations: tolerated well Complications: none Procedure start time:: 712 Procedure end time:: 716
[2021-10-06] VITALS (19 sets, daily range): BP systolic 104–156; BP diastolic 46–78; PULSE 76–98; RESP 12–20; TEMP 36.4–37.4; O2SAT 92–100
--- NOTE | ~2021-10-06 | XR_ITS ---
EXAMINATION: XR knee RT 2V DATE: 10/06/2021 10:17 INDICATION: Total right knee arthroplasty. Postop. TECHNIQUE: 2 views of right knee were obtained. COMPARISON: Right knee radiographs 06/13/2021 FINDINGS: There is a total right knee arthroplasty with patellar resurfacing in near-anatomic alignme nt. No fracture. There is a small knee joint effusion. There is gas in the knee joint and soft tissue s, consistent with recent surgery. IMPRESSION: 1. Total right knee arthroplasty in near-anatomic alignment. Reviewed, dictated and finalized at location [facility]
[2021-10-06] MEDS: LACTATED RINGERS 1,000 ML 30 ML IV CONT ×2 (06:25→10:03)
[2021-10-06] MEDS: ACETAMINOPHEN 500 MG TABLET 1000 MG PO ×2 (06:27→13:00)
[2021-10-06] MEDS: TRANEXAMIC ACID 1,000MG/ISO100 1,000 MG/100 ML BAG 200 MG IVPB (06:27)
--- NOTE | 2021-10-06 07:20 | WPDHPUPDATE1 ---
History and Physical Update Update Date/Time: 10/06/21 07:20 History and Physical has been reviewed, including an updated exam of the patient. There are NO changes in the patient's condition. Risks, benefits, and alternatives have been discussed and questions answered. Patient agrees to proceed with procedure.
[2021-10-06] MEDS: ceFAZolin 2 GM/D5W 50 ML 2 GM/50 ML BAG IVPB ×3 (07:40→22:45)
--- NOTE | 2021-10-06 09:57 | P.OP_ITS ---
Procedure Note - Detailed Date of Procedure 10/06/21 Pre-op Diagnosis Primary OA right knee Post-op Diagnosis same Procedure Performed Right total knee arthroplasty. Surgeon Jose Eduardo Frank MD Mixer Attendant Courtney Stallings PA-C Anesthesia general and regional Findings Mild osteopenia. Typical bony resections. PCL intact, however due to her small stature, a portion of the PCL was resected with the tibia. A cruciate stabilizing insert was utilized for additional stability. Description of Procedure The patient was given a nerve block preoperatively, and then brought to the operating room. A general anesthetic was administered. The leg was prepped and draped in the usual sterile fashion. The limb was elevated and the tourniquet inflated to 300 mmHg during initial exposure, and cementation. A longitudinal incision was created along the medial border of the patella and patellar tendon, and a trivector approach to the knee was performed. A large medial release was taken. The knee was then flexed. The osteophytes were carefully removed. The intramedullary guide was placed in the femoral canal. The distal femoral resection was then taken with the oscillating saw. The collateral ligaments were carefully protected. The tibia was carefully exposed. The jig was applied, and the proximal tibia was resected according to preoperative plan. The knee was balanced in extension. Appropriate releases were taken where needed. The anterior cruciate ligament and meniscal remnants were removed. The posterior cruciate ligament was preserved. The patella was measured. Patellar resection was carried out with the oscillating saw. The lug holes drilled. The femur was sized and rotation assessed using a combination of gap balancing, posterior referencing, and the AP axis. The 4 in 1 cutting block was used to finish the femoral cuts after equal gaps were assured. The lug holes were drilled. The osteophytes were carefully removed from the back of the knee. The knee was copiously irrigated with antibiotic solution periodically throughout the procedure. The meniscal remnants were removed. The spacer block was used to confirm equal flexion and extension gaps. Slight increased medial release was required for optimal balancing. Three needle releases with the 18 gauge needle were performed. The tibia was sized and broached. The bony surfaces were prepared for cementing with pulsatile lavage. The real tibial, femoral and patellar components were cemented into position. Excess cement was carefully removed. Patellar tracking was carefully assessed. No additional releases were required. The wound was closed with #1 Vicryl suture, #2 Quill suture, 0-Quill suture, and 2-0 Quill suture followed by Steri-Strips. A sterile bulky dressing was applied. Meticulous hemostasis was maintained throughout the procedure. There were no complications. The patient was extubated and brought to the recovery room in stable condition after the application of sterile dressing with Eliu bandage. Implants [employer] triathlon knee system size 2 femur, size 2 tibia. Cruciate stabilizing polyethylene insert 11 mm. [place] tibial base plate. Estimated Blood Loss -100.0 Drains No Packing No Pathology none sent Complications No immediate complications Condition stable Disposition PACU
--- NOTE | 2021-10-06 10:13 | SUR.PHASEI ---
1013 2 VIEWS OF XRAY TAKEN OF RT KNEE.
--- NOTE | 2021-10-06 11:07 | SUR.PHASEI ---
1100 PT MEETS ANESTHESIA DISCHARGE CRITERIA. WAITING ON POST OP ROOM TO BECOME AVAILABLE.
[2021-10-06] MEDS: SODIUM CHLORIDE 0.9% IV 1,000 ML 125 ML IV CONT (13:42)
[2021-10-06] MEDS: oxyCODONE HCL (*CRX) 5 MG TAB IR 10 MG PO ×2 (13:45→22:00)
--- NOTE | 2021-10-06 14:33 | ADMGEN ---
This patient, Lindsay Landry, was admitted to [facility]. Patient/family oriented to hospital policies and general routines including ID bracelet, bed and alarms, visiting hours, pain management, procedures, bathroom and other care routines, personal items, smoking policy, room service/diet, and visiting hours. Information on how to activate the Rapid Response Team has been discussed. Patient/Family are encouraged to report perceived risks to care and to ask questions if they do not understand what they are told or what they should do.
[2021-10-06] MEDS: oxyCODONE HCL (*CRX) 5 MG TAB IR PO (18:05)
[2021-10-06] MEDS: SENNA/DOCUSATE SODIUM TABLET 2 TAB PO (18:42)
[2021-10-06] MEDS: FAMOTIDINE 20 MG TABLET PO (22:00)
[2021-10-06] MEDS: CYCLOBENZAPRINE HCL 10 MG TABLET PO (22:00)
[2021-10-07] MEDS: oxyCODONE HCL (*CRX) 5 MG TAB IR 10 MG PO ×3 (02:40→10:49)
[2021-10-07 02:52] VITALS: BP 110/48; PULSE 73; RESP 16; TEMP 36.5; O2SAT 100
[2021-10-07 06:32] VITALS: BP 101/52; PULSE 78; RESP 18; O2SAT 98
[2021-10-07] MEDS: DICLOFENAC SOD 75 MG TABLET.EC PO (06:35)
[2021-10-07] MEDS: ceFAZolin 2 GM/D5W 50 ML 2 GM/50 ML BAG IVPB (06:45)
[2021-10-07] MEDS: CYCLOBENZAPRINE HCL 10 MG TABLET PO (06:50)
[2021-10-07 08:00] VITALS: PULSE 67; RESP 16; O2SAT 99
[2021-10-07] MEDS: ROSUVASTATIN 10 MG TABLET PO (08:52)
[2021-10-07] MEDS: polyethylene glycoL 3350 17 GM POWD.PACK PO (08:52)
[2021-10-07] MEDS: SENNA/DOCUSATE SODIUM TABLET 2 TAB PO (08:52)
[2021-10-07] MEDS: ASPIRIN 81 MG ENTERIC TABLET PO (08:52)
[2021-10-07] MEDS: FAMOTIDINE 20 MG TABLET PO (08:52)
--- NOTE | 2021-10-07 09:12 | P.DS_ITS ---
DS: Admitting Diagnosis Discharge Date 10/07/21 Admitting Diagnosis OA knee Right DS: Discharge Diagnosis Discharge Diagnosis (1) Status post total right knee replacement: Code(s): Z96.651 - Presence of right artificial knee joint Status: Acute Assessment and Plan: Postop day 1: Right total knee arthroplasty. Patient tolerated procedure well. No complications. Pain manageable with pain medication. No numbness or tingling. We had a lengthy discussion regarding postoperative wound care, limitations, expectations, and exercises. Patient shows good understanding. He has had initial physical therapy and is tolerating it well. DVT prophylaxis: 81 mg baby aspirin b.i.d. for 14 days. Compression socks. Short frequent walks. Pain medication: Percocet. Continue Diclofenac. Prednisone. Patient has followup appointment with Dr. Frank in 3 weeks. DS: Summary Hospital Course Reason for hospitalization: Total knee arthroplasty Hospital Course: Patient tolerated procedure well. Has had initial PT/OT. Status at Discharge Functional status at discharge: uses cane/walker Overall status at discharge: patient is progressing back to baseline Time Spent with Patient Time attestation: Total time spent providing and/or coordinating discharge services: Exam Narrative: Obese female. Resting comfortably in bed. Wearing compression socks bilaterally. Dressing intact with no drainage. Moderate swelling. Small area of ecchymosis. No erythema. Range of motion limited due to pain. Calf nontender. Neurologic status intact. No varicosities. Distal pulses palpable. Discharge Plan Discharge Patient Disposition: Home, Self-Care Discharge Instructions: See instruction sheet Stand Alone Forms: General Discharge Instructions Follow-up/Referrals: Courtney Stallings PA [Physician Machine Binder Stripper] - Discharge Medications: New aspirin 81 mg tablet,delayed release (DR/EC) 81 mg PO BID 14 Days Qty: 28 RF: 0 oxycodone-acetaminophen 5-325 mg tablet 1 - 2 tablet PO Q4-6H MDD 6 PRN (Reason: pain) Qty: 30 RF: 0 prednisone 5 mg tablet 5 mg PO DAILY 21 Days Qty: 21 RF: 0 Continued ascorbic acid (vitamin C) 1,000 mg tablet 1 g PO QAM RF: 0 vitamin E (dl, acetate) 180 mg (400 unit) capsule 180 mg PO DAILY RF: 0 calcium carbonate-vitamin D3 600 mg(1,500mg) -200 unit Tablet 1 tablet PO QAM RF: 0 ergocalciferol (vitamin D2) 50,000 unit Tablet 50,000 unit PO WEEKLY RF: 0 tamoxifen 20 mg tablet 20 mg PO QAM RF: 0 diclofenac sodium 75 mg tablet,delayed release (DR/EC) 75 mg PO BID PRN (Reason: pain) Qty: 180 RF: 3 levothyroxine [Synthroid] 125 mcg tablet 125 mcg PO DAILY Qty: 90 RF: 1 rosuvastatin 10 mg tablet 10 mg PO QAM Qty: 90 RF: 1 Held acetaminophen 500 mg Tablet 1,000 mg PO Q6H PRN (Reason: Pain) RF: 0 Hold Instructions: Resume on 10/21/21. Hold while taking Percocet. No more than 3,000 mg Tylenol in a 24 hour period. tramadol 50 mg tablet 50 mg PO Q6H PRN (Reason: Pain) Qty: 30 RF: 0 Hold Instructions: Resume on 10/21/21.
== END 2021-10-07 11:00 | disposition home or self-care (01) ==
LOC: ANHSURGERY 05:49 → ANHSUROVER 13:02
PROVIDERS: PCP Family Medicine; Visit Provider Orthopaedic Surgery
PROC: (CPT 27447; principal; 2021-10-06 07:30)
DX: M17.11 Unilateral primary osteoarthritis, right knee (principal); M71.21 Synovial cyst of popliteal space [Baker], right knee; M65.861 Other synovitis and tenosynovitis, right lower leg; E78.5 Hyperlipidemia, unspecified; E03.9 Hypothyroidism, unspecified; Z87.891 Personal history of nicotine dependence; E66.9 Obesity, unspecified; Z68.34 Body mass index [BMI] 34.0-34.9, adult; G89.18 Other acute postprocedural pain
CPT/HCPCS: 27447; 64447; 73560; 97110; 97116; 97161; 97165; 97535; A9270; C1713; C1776; J0131; J0171; J0690; J1100; J1170; J1200; J1885; J2250; J2405; J2704; J2795; J3010; J7030; J7120

== ENCOUNTER 2022-02-06 08:29 | Outpatient (CLI) | payer BC, SELFPAY ==
[2022-02-06 09:13] LABS: Hematocrit 38.5 % (37.0-47.0); Hemoglobin 12.5 g/dL (12.0-15.0)
[2022-02-06 09:22] LABS: Albumin Level 3.5 g/dL (3.5-5.1); Estimated Glomerular Filt Rate > 60; Glucose 85 mg/dL (65-110)
[2022-02-06 09:23] LABS: Urine Cotinine NEGATIVE
[2022-02-06 09:25] LABS: Hemoglobin A1C 5.6 % (<5.7)
== END 2022-02-06 08:30 | disposition home or self-care (01) ==
LOC: ANHLAB 08:32
PROVIDERS: PCP Family Medicine; Visit Provider Orthopaedic Surgery
DX: Z01.812 Encounter for preprocedural laboratory examination (principal); R73.9 Hyperglycemia, unspecified; E78.2 Mixed hyperlipidemia; Z87.891 Personal history of nicotine dependence; M17.12 Unilateral primary osteoarthritis, left knee
CPT/HCPCS: 80307; 82040; 82565; 82947; 83036; 85014; 85018

== ENCOUNTER 2022-03-15 11:48 | Outpatient (CLI) | payer BC, SELFPAY ==
[2022-03-15 13:19] LABS: Basophils Absolute Auto 0.1 K/mm3 (0.0-0.1); Basophils Percent Auto 0.9 % (0.2-1.2); Eosinophils Absolute Auto 0.2 K/mm3 (0-0.3); Eosinophils Percent Auto 2.3 % (0-4.4); Hematocrit 38.5 % (37.0-47.0); Hemoglobin 12.9 g/dL (12.0-15.0); Immature Granulocyte Absolute 0.02 K/mm3 (0.00-0.031); Immature Granulocyte Percent A 0.3 % (0-0.5); Lymphocytes Absolute Auto 2.38 K/mm3 (0.9-3.2); Lymphocytes Percent Auto 34.7 % (18.3-44.2); Mean Corpuscular HGB Conc 33.5 g/dl (32-36); Mean Corpuscular Hemoglobin 32.3 pg (26-34); Mean Corpuscular Volume 96.3 fl (80-100); Mean Platelet Volume 9.1 fl (7.4-10.4); Monocytes Absolute Auto 0.8 K/mm3 (0.1-0.6); Monocytes Percent Auto 11.5 % (2.6-8.5); Neutrophils Absolute Auto 3.4 K/mm3 (1.3-6.7); Neutrophils Percent Auto 50.3 % (45.5-73.1); Platelet Count Result 252 k/mm3 (150-375); Red Cell Distribution Width 12.6 % (11.5-14.5); White Blood Count 6.9 K/mm3 (4.5-10.0)
[2022-03-15 13:29] LABS: Albumin Level 4.1 g/dL (3.5-5.1); Estimated Glomerular Filt Rate > 60; Glucose 85 mg/dL (65-110)
[2022-03-15 13:55] LABS: Urine Cotinine NEGATIVE
== END 2022-03-15 11:49 | disposition home or self-care (01) ==
LOC: ANHSURGERY 11:53
PROVIDERS: PCP Family Medicine; Visit Provider Orthopaedic Surgery
DX: Z01.812 Encounter for preprocedural laboratory examination (principal); M17.12 Unilateral primary osteoarthritis, left knee; Z51.81 Encounter for therapeutic drug level monitoring; Z79.899 Other long term (current) drug therapy
CPT/HCPCS: 80307; 82040; 82565; 82947; 85025; 87081

== ENCOUNTER 2022-04-12 13:45 | Observation (INO) | payer BC, SELFPAY ==
[2022-03-15 12:06] VITALS: BMI 36.9
[2022-03-15 12:17] VITALS: BP 114/56; PULSE 74; RESP 16; TEMP 37.3; O2SAT 96
--- NOTE | 2022-03-15 12:30 | PC.NURSE ---
Report to the Outpatient Waiting Room, entrance under the green pavilion located off [facility], at time __8:30AM on date __04/11/22 . OR Time: __10:30AM . - You and your visitor will be asked a series of questions to screen for COVID 19 for your protection. - Only one visitor is allowed at this time. - The patient visitor is requested to leave or wait in car when not with patient. - A mask is required within the hospital. Patients may have clear liquids (water, carbonated beverages, clear teas, apple juice) until 3 hours prior to surgery with a maximum of 20 ounces. - No food from midnight until time of surgery Take the following medications with a SIP of water the morning of surgery: ___SYNTHROID Medications to discontinue per physician ___HOLD DICLOFENAC AND IBUPROFEN 7 DAYS PRE-OP- LAST DOSE-04/03/22, HOLD VITAMINS/SUPPLEMENTS 3 DAYS PRE-OP-LAST DOSE 04/07/22 Please no make-up, nail sinhala, hairspray, perfume, deodorant, or body powder the day of surgery. No jewelry (including any body piercings) or valuables the day of surgery, leave them at home. Please take a shower or bath the night before, or the morning of, surgery with an antibacterial soap. Wear comfortable, loose fitting clothing. Children are encouraged to wear pajamas. - Jewelry must be removed prior to entering the operating room. Rings and piercings that are not removed may be cut off. - The hospital will not accept responsibility for valuables. - Please leave all valuables, including medications, at home the day of surgery. If you are going home after surgery, a licensed sprinkler truck driver must drive you home. - NO public transportation without another adult. - We recommend that an adult stay with you for 24 hours following discharge. - We also recommend that you do not drive, make important decision, drink alcoholic beverages, or take any drugs that were not prescribed by your health care provider for at least 24 hours after your discharge time. Follow any additional instructions given to you from your surgeon. If you or anyone in your household have experienced Covid symptoms in the past week, please notify your surgeon or the nurse liaison at the phone number below for possible testing. Telephone instructions given to __PATIENT and asked if any additional questions and then verbalized understanding. Patient advised to call surgeon office or pre surgery nurse liaison [phone] if any additional questions.
--- NOTE | 2022-04-10 14:44 | WPDANESEPPF ---
Anes - Initial Pre Proc Eval Procedure: Operation Date: 04/11/22 10:30 Proposed Procedures p Left Total Knee Arthroplasty - Jose Eduardo Frank MD Date/Time: 04/10/22 14:44 Surgeon: Jose Eduardo Frank MD Pre Op Diagnosis: Prim O A Lt Knee Patient Data Age: 66 Gender: F Height: 1.56 m Weight: 90.2 kg Last Vital Signs Temp 37.3 C 03/15/22 12:17 Pulse 74 03/15/22 12:17 Resp 16 03/15/22 12:17 BP 114/56 L 03/15/22 12:17 Pulse Ox 96 03/15/22 12:17 O2 Del Method Room Air 03/15/22 12:17 Allergies Allergy/AdvReac Type Severity Reaction Status Date / Time chlorhexidine Allergy Mild Rash Verified 04/11/22 08:28 [From Hibiclens] morphine Allergy Unknown Skin Verified 04/11/22 08:28 irritation Penicillins Allergy Unknown Skin Verified 04/11/22 08:28 irritation Home Medications Medication Instructions Recorded Confirmed Type ascorbic acid (vitamin C) 1,000 mg 1 g PO QAM 06/22/21 04/05/22 History tablet calcium carbonate 600 mg-vitamin 1 tablet PO QAM 07/15/21 04/05/22 History D3 5 mcg (200 unit) tablet tamoxifen 20 mg tablet 20 mg PO QAM 07/15/21 04/05/22 History diclofenac sodium 75 mg 75 mg PO BID PRN pain #180 tabs 10/17/21 04/05/22 Rx tablet,delayed release ergocalciferol (vitamin D2) 1,250 1,250 mcg PO WEEKLY #14 caps 01/17/22 04/05/22 Rx mcg (50,000 unit) capsule acetaminophen 650 mg 1,300 mg PO Q12H PRN Pain 03/15/22 04/05/22 History tablet,extended release levothyroxine 125 mcg tablet 125 mcg PO DAILY 03/15/22 04/05/22 History (Synthroid) rosuvastatin 10 mg tablet 10 mg PO QAM #90 tabs 03/22/22 04/05/22 Rx tramadol 50 mg tablet 50 mg PO Q6H PRN Pain #30 tabs 04/04/22 04/05/22 Rx Patient hx anesthesia problems: none Family hx anesthesia problems: none Results Review: All pre-operative results and documents have been reviewed as part of the pre-operative evaluation. [facility] Past Medical History Medical History (Updated 04/10/22 @ 14:45 by Alexsander Cm MD) Breast cancer History of nicotine use Hyperlipidemia LDL goal <100 Hypothyroidism determined by thyroid function test Kidney stone Obesity On statin therapy Primary localized osteoarthritis of both knees Vitamin D deficiency Xanthelasma of eyelid Surgical History Surgical History H/O section History of dilation and curettage numerous after miscarriages History of total right knee replacement (~10/07/21) Hx of hysterectomy Family History Family History Sibling Family history of thyroid disease Hypertension Grandparent Diabetes mellitus Acute myocardial infarction Mother Hypertension Family history of chronic obstructive pulmonary disease Father Family history of cardiovascular disease Family history of coronary artery disease Patient's father is in good health Other Osteoporosis Social History Social History Smoking packs per day: 0.75 Smoking cigarettes per day: 15.0 Years smoked: 30 Smoking pack-years: 22.50 Smoking status: Former smoker Tobacco type: cigarettes Second hand tobacco smoke exposure: No Smoking end date: 10/06/18 Additional smoking assessment comments: STATES QUIT 2017 - OCCASIONALLY USES [employer] Alcohol intake: current Alcohol use details: STATES MAYBE 2 DRINKS/YEAR Substance use: never Substance use type: does not use Living arrangements: with family Additional living arrangements comments: [facility]USB Spiritual care concerns: No Anes - Eval Final PreProcedure Day of Procedure 04/10/22 14:44 Patient weight: obese Heart: regular rate and rhythm Lungs: clear to auscultation and normal air movement Airway: Mallampati scale class II Neurological: alert and oriented Last oral intake: >/= 8 hours ASA classificati
--- NOTE | 2022-04-10 14:46 | WPDANESPNB ---
Anes - Peripheral Nerve Block Date/Time: 04/10/22 14:46 I have discussed with the patient/family/POA the placement of a peripheral nerve block for post-operative pain management, including associated risks, benefits, complications, and side effects. Alternative methods of post-operative analgesia were detailed. Questions were solicited and answers provided to the satisfaction of the patient/family/POA. Time-Out: A pre-procedural Time-Out was completed immediately before starting the procedure and confirmed: Patient Identification, Site, Procedure, Patient Position and the Availability of Requisite Equipment. Clinical Indications: Acute post-operative pain management requested by the operative surgeon. Nerve Block Insertion Note Anes-nerve block: adductor canal left Patient position: supine Skin prep: chlorhexidine Needle: 22 gauge, stimulating, insulated echogenic needle. Needle length: 80 mm Technique: ultrasound Technique comment: in plane Injectate: bupivacaine 0.5% with epi 5 mcg/ml (30cc) Observations: tolerated well Complications: none Procedure start time:: 1020 Procedure end time:: 1025
[2022-04-11] VITALS (17 sets, daily range): BP systolic 107–157; BP diastolic 47–91; PULSE 67–96; RESP 11–19; TEMP 36.3–36.6; O2SAT 95–100
--- NOTE | 2022-04-11 07:11 | WPDHPUPDATE1 ---
History and Physical Update Update Date/Time: 04/11/22 07:11 History and Physical has been reviewed, including an updated exam of the patient. There are NO changes in the patient's condition. Risks, benefits, and alternatives have been discussed and questions answered. Patient agrees to proceed with procedure.
[2022-04-11] MEDS: ACETAMINOPHEN 500 MG TABLET 1000 MG PO (08:48)
[2022-04-11] MEDS: LACTATED RINGERS 1,000 ML 30 ML IV CONT ×2 (10:00→12:46)
[2022-04-11] MEDS: TRANEXAMIC ACID 1,000MG/ISO100 1,000 MG/100 ML BAG 200 MG IVPB (10:05)
[2022-04-11] MEDS: ceFAZolin 2 GM/D5W 50 ML 2 GM/50 ML BAG IVPB ×2 (10:45→18:52)
[2022-04-11] MEDS: fentaNYL CITRATE INJ (*CRX) 100 MCG/2 ML VIAL 25 MCG IV PUSH ×2 (13:11→13:45)
[2022-04-11] MEDS: oxyCODONE HCL (*CRX) 5 MG TAB IR PO ×2 (15:30→20:00)
--- NOTE | 2022-04-11 16:21 | PC.NURSE ---
This patient, Lindsay Landry, was admitted to 2 Medical Room 251-01. Patient/family oriented to hospital policies and general routines including ID bracelet, bed and alarms, visiting hours, pain management, procedures, bathroom and other care routines, personal items, smoking policy, room service/diet, and visiting hours. Information on how to activate the Rapid Response Team has been discussed. Patient/Family are encouraged to report perceived risks to care and to ask questions if they do not understand what they are told or what they should do.
--- NOTE | 2022-04-11 16:25 | P.OP_ITS ---
Procedure Note - Detailed Date of Procedure 04/11/22 Pre-op Diagnosis Prim O A Lt Knee Post-op Diagnosis Same Procedure Performed Total knee arthroplasty, left. Surgeon Jose Eduardo Frank MD Geriatric Psychiatrist Courtney Stallings PA-C Anesthesia General and Regional (subsartorial block) Description of Procedure The patient was brought to the operating room. A general anesthetic was administered. The leg was prepped and draped in the usual sterile fashion. The limb was elevated and the tourniquet inflated to 300 mmHg during initial exposure, and cementation. A longitudinal incision was created along the medial border of the patella and patellar tendon, and a trivector approach to the knee was performed. A large medial release was taken. The knee was then flexed. The osteophytes were carefully removed. The intramedullary guide was placed in the femoral canal. The distal femoral resection was then taken with the oscillating saw. The collateral ligaments were carefully protected. The tibia was carefully exposed. The jig was applied, and the proximal tibia was resected according to preoperative plan. The knee was balanced in extension. Appropriate releases were taken where needed. The anterior cruciate ligament and meniscal remnants were removed. The posterior cruciate ligament was preserved. The patella was measured. Patellar resection was carried out with the oscillating saw. The lug holes drilled. The femur was sized and rotation assessed using a combination of gap balancing, posterior referencing, and the AP axis. The 4 in 1 cutting block was used to finish the femoral cuts after equal gaps were assured. The osteophytes were carefully removed from the back of the knee. The knee was copiously irrigated with antibiotic solution periodically throughout the procedure. The meniscal remnants were removed. The spacer block was used to confirm equal flexion and extension gaps. No further releases were needed. The tibia was sized and broached. The bony surfaces were prepared for cementing with pulsatile lavage. The real tibial and femoral and patellar components were cemented into position. Excess cement was carefully removed. Patellar tracking was carefully assessed. No additional releases were required. Dilute sterile Betadine soak performed for three minutes. Copious irrigation then performed. The wound was closed with #1 Vicryl suture, #2, 2-0, and 3-0 barbed suture, followed by Steri-Strips. A sterile bulky dressing was applied. Meticulous hemostasis was maintained throughout the procedure. The bipolar cautery device was used. The pain relieving mixture was injected into the periarticular tissues during the procedure. There were no complications. The patient was extubated and brought to the recovery room in stable condition after the application of sterile dressing with Eliu bandage. Physician marketing assistant retail division, Courtney Stallings PA-C, required for surgery; including patient positioning, draping, tissue retraction, maintaining instrument position, cement removal, wound closure, and dressing placement. Implants [employer] Triathlon knee system, universal cemented tibia size 2, cemented femoral component size 2 ,and an 12mm cruciate stabilizing polyethylene insert. 29mm asymmetric all polyethylene patella component. Estimated Blood Loss -300.0 Drains No Pathology None sent Complications No immediate complications Condition Stable Disposition PACU [facility] Billing Surgery - Charge Forward: Surgery Billing
[2022-04-11] MEDS: ASPIRIN 81 MG ENTERIC TABLET PO (17:31)
[2022-04-11] MEDS: SENNA/DOCUSATE SODIUM TABLET 2 TAB PO (17:31)
[2022-04-11] MEDS: FAMOTIDINE 20 MG TABLET PO (20:18)
[2022-04-12] VITALS (10 sets, daily range): BP systolic 78–140; BP diastolic 33–64; PULSE 65–110; RESP 18–21; TEMP 36.1–37.2; O2SAT 99–100
--- NOTE | ~2022-04-12 | XR_ITS ---
EXAMINATION: XR knee LT 2V DATE: 04/11/2022 13:00 INDICATION: Total left knee arthroplasty. Postop. TECHNIQUE: 2 views of left knee were obtained. COMPARISON: Left knee radiographs 04/10/2022 FINDINGS: There is a total left knee arthroplasty with patellar resurfacing in near-anatomic alignmen t. No fracture. There is gas in the soft tissues and knee joint, consistent with recent surgery. IMPRESSION: 1. Total left knee arthroplasty in near-anatomic alignment. Reviewed, dictated and finalized at location A.
[2022-04-12] MEDS: oxyCODONE HCL (*CRX) 5 MG TAB IR 10 MG PO ×3 (00:01→23:39)
[2022-04-12] MEDS: CYCLOBENZAPRINE HCL 10 MG TABLET PO (04:01)
[2022-04-12] MEDS: ceFAZolin 2 GM/D5W 50 ML 2 GM/50 ML BAG IVPB ×2 (04:01→11:45)
[2022-04-12] MEDS: LEVOTHYROXINE SODIUM 125 MCG TABLET PO (05:38)
--- NOTE | 2022-04-12 08:40 | PC.NURSE ---
called Dr. Frank's office to speak with him. Patient blood pressure dropped to 78/46 and she became dizzy while working with therapy. Awaiting a call back
[2022-04-12] MEDS: ASPIRIN 81 MG ENTERIC TABLET PO ×2 (08:46→16:55)
[2022-04-12] MEDS: predniSONE 5 MG TABLET PO (08:46)
[2022-04-12] MEDS: polyethylene glycoL 3350 17 GM POWD.PACK PO (08:47)
[2022-04-12] MEDS: TAMOXIFEN CITRATE (*CHEMO) 10 MG TABLET 20 MG PO (08:47)
[2022-04-12] MEDS: FAMOTIDINE 20 MG TABLET PO ×2 (08:47→20:39)
[2022-04-12] MEDS: SENNA/DOCUSATE SODIUM TABLET 2 TAB PO ×2 (08:47→16:55)
[2022-04-12] MEDS: traMADol HCL (*CRX) 50 MG TABLET PO ×2 (09:10→19:58)
[2022-04-12] MEDS: SODIUM CHLORIDE 0.9% IV 500 ML IV CONT (09:11)
[2022-04-12 09:59] LABS: Basophils Percent Auto 0.2 % (0.2-1.2); Eosinophils Percent Auto 0.1 % (0-4.4); Hematocrit 29.2 % (37.0-47.0); Hemoglobin 9.4 g/dL (12.0-15.0); Immature Granulocyte Absolute 0.05 K/mm3 (0.00-0.031); Immature Granulocyte Percent A 0.5 % (0-0.5); Lymphocytes Absolute Auto 1.61 K/mm3 (0.9-3.2); Lymphocytes Percent Auto 17.5 % (18.3-44.2); Mean Corpuscular HGB Conc 32.2 g/dl (32-36); Mean Corpuscular Hemoglobin 32.2 pg (26-34); Mean Platelet Volume 9.5 fl (7.4-10.4); Monocytes Percent Auto 11.2 % (2.6-8.5); Neutrophils Absolute Auto 6.5 K/mm3 (1.3-6.7); Neutrophils Percent Auto 70.5 % (45.5-73.1); Platelet Count Result 159 k/mm3 (150-375); Red Blood Count 2.92 M/mm3 (4.2-5.4); Red Cell Distribution Width 12.7 % (11.5-14.5); White Blood Count 9.2 K/mm3 (4.5-10.0)
[2022-04-12 10:07] LABS: Alanine Aminotransferase 16 U/L (6-35); Albumin Level 3.2 g/dL (3.5-5.1); Alkaline Phosphatase 44 U/L (38-126); Anion Gap 7 mmol/L (8-16); Aspartate Amino Transferase 21 U/L (14-36); Bilirubin,Total 0.4 mg/dL (0.2-1.3); Blood Urea Nitrogen 15 mg/dL (7-17); Calcium 7.6 mg/dL (8.4-10.2); Carbon Dioxide 24 mmol/L (22-30); Chloride 106 mmol/L (98-107); Estimated CRCL calculation 64 ml/min; Estimated Glomerular Filt Rate > 60; Glucose 148 mg/dL (65-110); Sodium 137 mmol/L (137-145)
--- NOTE | 2022-04-12 11:02 | PCPTNOTE ---
Attempted PT evaluation, Per hospitalist, hold PT until after lunch due to low BP. Will Follow.
--- NOTE | 2022-04-12 11:35 | P.PNAN_ITS ---
Anes - Prog Note Post-Op Date/Time: 04/12/22 11:35 Vital Signs: Last Vital Signs Temp 37.0 C 04/12/22 08:30 Pulse 65 04/12/22 08:30 Resp 18 04/12/22 08:30 BP 110/62 04/12/22 08:45 Pulse Ox 100 04/12/22 08:30 O2 Del Method Room Air 04/12/22 08:05 O2 Flow Rate 7 04/11/22 13:30 Pain Score (VAS): 0 I/O: Intake & Output 04/11/22 04/12/22 04/12/22 23:59 07:59 15:59 Intake Total 1040 700 50 Output Total 300 500 Balance 740 200 50 Laboratory Tests 04/12/22 09:42 04/12/22 09:42 04/12/22 04/12/22 09:42 09:42 WBC 9.2 RBC 2.92 L Hgb 9.4 L D Hct 29.2 L MCV 100.0 MCH 32.2 MCHC 32.2 RDW 12.7 Plt Count 159 MPV 9.5 Immature Gran % (Auto) 0.5 Neut % (Auto) 70.5 Lymph % (Auto) 17.5 L Tompkins % (Auto) 11.2 H Eos % (Auto) 0.1 Baso % (Auto) 0.2 Lymph # (Auto) 1.61 Tompkins # (Auto) 1.0 H Eos # (Auto) 0.0 Baso # (Auto) 0.0 Abs Immat Gran (auto) 0.05 H Absolute Neuts (auto) 6.5 Absolute Nucleated RBC 0.0 Nucleated RBC % 0.0 Sodium 137 Potassium 4.0 Chloride 106 Carbon Dioxide 24 Anion Gap 7 L BUN 15 Creatinine 0.80 Estim Creat Clear Calc 64 Estimated GFR > 60 Glucose 148 H Calcium 7.6 L Total Bilirubin 0.4 AST 21 ALT 16 Alkaline Phosphatase 44 Total Protein 6.0 L Albumin 3.2 L Patient Feedback: Patient satisfied with anesthetic care.
--- NOTE | 2022-04-12 13:12 | PM.PNORT ---
Progress Note: A&P Assessment and Plan (1) Status post total left knee replacement: Code(s): Z96.652 - Presence of left artificial knee joint Status: Acute Assessment and Plan: Postop day 1: Left total knee arthroplasty. Patient tolerated procedure well. Patient has been having near syncopal episodes. Likely due to pain response. Her Hgb is low today. She did have 300 ml blood loss during surgery. Pain manageable with pain medication however it is worse than her contralateral knee replacement. No numbness or tingling. Will plan on keeping patient another day to assess the near syncopal episodes. Will re-evaluate for discharge tomorrow. Subjective Subjective Date/Time Seen: 04/12/22 13:12 Interval history: Patient has had multiple near syncopal episodes while getting up to the bathroom and with PT. She notes she feels light headed and dizzy during these moments. Pain is more significant than her contralateral knee replacement. No other complaints. No numbness or tingling. Review of Systems Review of Systems: All systems reviewed & are unremarkable except as noted in HPI and below Exam Narrative: 66-year-old overweight female. Resting comfortably in bed. Alert and oriented x3. No acute distress. Wearing compression socks bilaterally. Dressing intact with no drainage. Moderate swelling. No ecchymosis. No erythema. No hematoma. No warmth. Range of motion limited due to pain. Calf nontender. Neurologic status intact. No varicosities. Distal pulses palpable. Light touch sensation intact. Good capillary refill. Objective Data Vital Signs Vital Signs: Vital Signs - 24 hr 04/11/22 13:15 04/11/22 13:30 04/11/22 13:45 Temperature Pulse Rate 69 70 75 Respiratory Rate 11 L 12 12 Blood Pressure 128/52 L 129/56 L 122/53 L Pulse Oximetry 100 100 96 Oxygen Delivery Simple Face Mask Simple Face Mask Room Air Oxygen Flow Rate 7 7 04/11/22 14:01 04/11/22 14:15 04/11/22 14:30 Temperature Pulse Rate 75 67 67 Respiratory Rate 16 12 19 Blood Pressure 110/47 L 114/49 L 111/49 L Pulse Oximetry 99 100 100 Oxygen Delivery Room Air Room Air Room Air Oxygen Flow Rate 04/11/22 14:50 04/11/22 15:09 04/11/22 15:25 Temperature Pulse Rate 69 71 71 Respiratory Rate 12 14 14 Blood Pressure 107/51 L 122/71 131/52 L Pulse Oximetry 100 Oxygen Delivery Room Air Room Air Room Air Oxygen Flow Rate 04/11/22 15:40 04/11/22 15:54 04/11/22 17:07 Temperature 97.5 F L Pulse Rate 73 78 83 Respiratory Rate 14 16 18 Blood Pressure 129/49 L 122/52 L 157/91 H Pulse Oximetry 98 Oxygen Delivery Room Air Room Air Oxygen Flow Rate 04/11/22 17:22 04/11/22 17:52 04/11/22 19:38 Temperature 97.3 F L 97.5 F L 97.9 F Pulse Rate 96 86 72 Respiratory Rate 16 16 18 Blood Pressure 157/91 H 154/86 H 137/70 Pulse Oximetry 96 95 99 Oxygen Delivery Oxygen Flow Rate 04/11/22 20:00 04/12/22 00:00 04/12/22 04:00 Temperature 98.9 F 98.5 F Pulse Rate 74 69 Respiratory Rate 18 18 Blood Pressure 122/64 113/47 L Pulse Oximetry 99 100 Oxygen Delivery Room Air Oxygen Flow Rate 04/12/22 08:05 04/12/22 08:30 04/12/22 08:45 Temperature 98.6 F Pulse Rate 65 Respiratory Rate 18 Blood Pressure 78/46 L 110/62 Pulse Oximetry 100 Oxygen Delivery Room Air Oxygen Flow Rate 04/12/22 08:50 Temperature Pulse Rate Respiratory Rate Blood Pressure Pulse Oximetry Oxygen Delivery Room Air Oxygen Flow Rate Intake/Output Intake/Output: Intake & Output 04/09/22 04/10/22 04/11/22 04/12/22 23:59 23:59 23:59 23:59 Intake Total 2090 870 Output Total 300 500 Balance 1790 370 Meds/Results Medications: Active Medications Generic Name Dose Route Start Last Admin Trade Name Freq PRN Reason Stop Dose Admin Aspirin 81 mg 04/11/22 17:00 04/12/22 08:46 Aspirin 81 Mg Enteric Tablet PO 81 mg BID ARISTEO Administration Cyclobenzaprine HCl 10 mg
[2022-04-12] MEDS: oxyCODONE HCL (*CRX) 5 MG TAB IR PO ×2 (14:31→19:00)
--- NOTE | 2022-04-12 14:47 | PM.IMCN ---
Assessment and Plan Assessment and plan (1) Status post total left knee replacement: Code(s): Z96.652 - Presence of left artificial knee joint Status: Acute Assessment and Plan: Patient is status post left total knee arthroplasty by Dr. Frank on 04/11/2022 Patient tolerated procedure well Continue PT/OT Management per Orthopedic surgery (2) Pre-syncope: Code(s): R55 - Syncope and collapse Status: Acute Assessment and Plan: Patient with episode of lightheadedness and presyncope while walking to the bathroom today Suspect this to be vasovagal secondary to pain response Administer additional 500 cc IV fluid bolus Marcelo hose Monitor orthostatics Implement fall precautions Obtain EKG (3) Hypothyroidism (acquired): Code(s): E03.9 - Hypothyroidism, unspecified Status: Acute Assessment and Plan: TSH is within normal limits Continue levothyroxine HPI Data of Consult Consult date: 04/12/22 Requesting Physician: Jose Eduardo Frank MD Primary Care Provider: Key Li MD Consult Narrative Narrative: Date of service: 04/12/2022 Lindsay Landry is a 66 year old female with a history of breast cancer s/p lumpectomy maintained on tamoxifen, hypothyroidism, hyperlipidemia, osteoarthritis who is status post left total knee arthroplasty performed by Dr. Frank on 04/11/2022. She tolerated the procedure well with no immediate complications. This morning she got up and walked to the bathroom using her walker with assistance. She felt like she was doing okay getting around but did have pretty severe pain in left knee. She started to become lightheaded when she got close to the bathroom and when she sat down on the toilet she felt as though she might pass out. She had to lean on to her walker and let this sensation pass. She did not have a bowel movement and she was not straining. Stated her pain was about a 7/10 at that time. She denied feeling short of breath. Denied palpitations or visual disturbances. States she did break out in a light sweat along her hairline. Staff put her on the Kindra Stedy to get her back to bed. When she sat down she felt mostly better and then a few hours later she tried to get up to the bedside commode and again became lightheaded, but stated this episode was much less severe than the initial. At the time of my evaluation, she is feeling mostly better. She states she still feels ?a little off? but her lightheadedness seems to have resolved. She denies dizziness. She denies chest pain, palpitations, fever, chills, nausea, or vomiting. States she has been tolerating her diet, eating and drinking well. Her last bowel movement was yesterday. She denies any recent diarrhea or bloody stools. States that her blood pressure normally runs of bit low. Denies urinary symptoms including dysuria or hematuria. Review of Systems Review of Systems: All systems reviewed & are unremarkable except as noted in HPI and below PMFSH Past Medical History Medical History (Updated 04/12/22 @ 14:55 by Kerri Venegas PA-C) Breast cancer History of nicotine use Hyperlipidemia LDL goal <100 Hypothyroidism determined by thyroid function test Kidney stone Obesity On statin therapy Primary localized osteoarthritis of both knees Vitamin D deficiency Xanthelasma of eyelid Surgical History Surgical History (Updated 04/12/22 @ 14:55 by Kerri Venegas PA-C) H/O section History of dilation and curettage numerous after miscarriages History of total left knee replacement History of total right knee replacement (~10/07/21) Hx of hysterectomy Family History Family History Sibling Family history of thyroid disease Hypertension Grandparent Diabetes mellitus Acute myocardial infarction Mother Hypertension Family history of chronic obstructive pulmonary dis
--- NOTE | 2022-04-12 15:02 | ECG_ITS ---
Measurements Intervals [place] Rate: 83 P: 53 WV: 170 QRS: 31 QRSD: 90 T: 43 QT: 354 QTc: 418 Interpretive Statements SINUS RHYTHM EARLY PRECORDIAL R/S TRANSITION MINIMAL Q WAVES- INFERIOR LEADS BORDERLINE ECG Electronically Signed On 04-12-2022 22:41:22 CDT by Erick Forte D.O.
[2022-04-12] MEDS: SODIUM CHLORIDE 0.9% IV 500 ML 250 ML IV CONT (16:55)
[2022-04-13] VITALS (7 sets, daily range): BP systolic 105–140; BP diastolic 44–62; PULSE 82–95; RESP 19–20; TEMP 36.3–36.9; O2SAT 98–100
[2022-04-13 05:24] LABS: Hematocrit 28.4 % (37.0-47.0); Hemoglobin 9.2 g/dL (12.0-15.0); Mean Corpuscular HGB Conc 32.4 g/dl (32-36); Mean Corpuscular Hemoglobin 32.2 pg (26-34); Mean Corpuscular Volume 99.3 fl (80-100); Mean Platelet Volume 9.5 fl (7.4-10.4); Platelet Count Result 159 k/mm3 (150-375); Red Blood Count 2.86 M/mm3 (4.2-5.4); Red Cell Distribution Width 12.5 % (11.5-14.5); White Blood Count 10.1 K/mm3 (4.5-10.0)
[2022-04-13] MEDS: oxyCODONE HCL (*CRX) 5 MG TAB IR PO (05:38)
[2022-04-13] MEDS: LEVOTHYROXINE SODIUM 125 MCG TABLET PO (05:38)
[2022-04-13 05:44] LABS: Anion Gap 3 mmol/L (8-16); Blood Urea Nitrogen 9 mg/dL (7-17); Calcium 7.7 mg/dL (8.4-10.2); Carbon Dioxide 26 mmol/L (22-30); Chloride 106 mmol/L (98-107); Estimated CRCL calculation 83 ml/min; Estimated Glomerular Filt Rate > 60; Glucose 134 mg/dL (65-110); Potassium 3.6 mmol/L (3.4-5.0); Sodium 135 mmol/L (137-145)
[2022-04-13] MEDS: predniSONE 5 MG TABLET PO (07:50)
[2022-04-13] MEDS: CYCLOBENZAPRINE HCL 10 MG TABLET PO (07:50)
[2022-04-13] MEDS: traMADol HCL (*CRX) 50 MG TABLET PO (07:50)
[2022-04-13] MEDS: polyethylene glycoL 3350 17 GM POWD.PACK PO (07:51)
[2022-04-13] MEDS: ASPIRIN 81 MG ENTERIC TABLET PO ×2 (07:51→16:37)
[2022-04-13] MEDS: TAMOXIFEN CITRATE (*CHEMO) 10 MG TABLET 20 MG PO (07:51)
[2022-04-13] MEDS: FAMOTIDINE 20 MG TABLET PO ×2 (07:51→19:45)
[2022-04-13] MEDS: SENNA/DOCUSATE SODIUM TABLET 2 TAB PO ×2 (07:51→16:37)
[2022-04-13] MEDS: oxyCODONE HCL (*CRX) 5 MG TAB IR 10 MG PO ×3 (09:45→23:22)
--- NOTE | 2022-04-13 12:10 | PM.DS ---
DS: Admitting Diagnosis Discharge Date 04/13/22 Admitting Diagnosis OA knee Left DS: Discharge Diagnosis Discharge Diagnosis (1) Status post total left knee replacement: Code(s): Z96.652 - Presence of left artificial knee joint Status: Acute Assessment and Plan: Postop day 1: Left total knee arthroplasty. Patient tolerated procedure well. She had some issues with dizziness likely due to pain when up. This is improving and she feels much better today. She feels comfortable going home. Pain manageable with pain medication. No numbness or tingling. We had a lengthy discussion regarding postoperative wound care, limitations, expectations, and exercises. Patient shows good understanding. He has had initial physical therapy and is tolerating it well. DVT prophylaxis: 81 mg baby aspirin b.i.d. for 14 days. Pain medication: Percocet. Diclofenac. Prednisone. Tylenol. Patient has followup appointment with Dr. Frank in 3 weeks. DS: Summary Hospital Course Reason for hospitalization: Total knee arthroplasty Hospital Course: Patient tolerated procedure well. She had some issues with dizziness likely due to pain when up. This is improving and she feels much better today. Has had initial PT/OT. Status at Discharge Functional status at discharge: uses cane/walker Overall status at discharge: patient is progressing back to baseline Time Spent with Patient Time attestation: Total time spent providing and/or coordinating discharge services: Exam Narrative: Overweight 66-year-old overweight female. Resting comfortably in bed. Alert and oriented x3. No acute distress. Wearing compression socks bilaterally. Dressing intact with no drainage on Mepilex. Moderate swelling. Mild ecchymosis. No erythema. No hematoma. Range of motion limited due to pain. Calf nontender. Neurologic status intact. No varicosities. Distal pulses palpable. DS: Data Data Completed and Pending Labs on day of discharge: Labs from last 24 hours 04/13/22 04/13/22 05:08 05:08 WBC 10.1 H RBC 2.86 L Hgb 9.2 L Hct 28.4 L MCV 99.3 MCH 32.2 MCHC 32.4 RDW 12.5 Plt Count 159 MPV 9.5 Sodium 135 L Potassium 3.6 Chloride 106 Carbon Dioxide 26 Anion Gap 3 L BUN 9 D Creatinine 0.60 L Estim Creat Clear Calc 83 Estimated GFR > 60 Glucose 134 H Calcium 7.7 L Discharge Plan Discharge Attending physician on discharge: Jose Eduardo Frank Consulting providers: Kerri Venegas ; Joseline Paulson Discharging Clinician: Courtney Stallings Patient Disposition: Home, Self-Care Activity: may shower and no driving Diet: as tolerated Wound Care Instructions: follow printed instructions Discharge Instructions: See green instruction sheets. Patient Instructions: Antibiotic Form Stand Alone Forms: General Discharge Information Follow-up/Referrals: Courtney Stallings PA [Physician Forest Fire Prevention Manager] - Discharge Medications: New oxycodone-acetaminophen 5-325 mg tablet 1 - 2 tablet PO Q4-6H MDD 6 PRN (Reason: pain) Qty: 30 0RF aspirin 81 mg tablet,delayed release (DR/EC) 81 mg PO BID 14 Days Qty: 28 0RF prednisone 5 mg tablet 5 mg PO DAILY 21 Days Qty: 21 0RF Continued ascorbic acid (vitamin C) 1,000 mg tablet 1 g PO QAM ergocalciferol (vitamin D2) 1,250 mcg (50,000 unit) capsule 1,250 mcg PO WEEKLY Qty: 14 1RF Rx Instructions: mondays calcium carbonate-vitamin D3 600 mg(1,500mg) -200 unit Tablet 1 tablet PO QAM tamoxifen 20 mg tablet 20 mg PO QAM acetaminophen [Tylenol Arthritis] 650 mg Tablet Extended Release 1,300 mg PO Q12H PRN (Reason: Pain) levothyroxine [Synthroid] 125 mcg Tablet 125 mcg PO DAILY diclofenac sodium 75 mg tablet,delayed release (DR/EC) 75 mg PO BID PRN (Reason: pain) Qty: 180 3RF rosuvastatin 10 mg tablet 10 mg PO QAM Qty: 90 1RF Held tramadol 50 m
--- NOTE | 2022-04-13 13:40 | PM.IMPN ---
Progress Note: A&P Assessment and Plan (1) Status post total left knee replacement: Code(s): Z96.652 - Presence of left artificial knee joint Status: Acute Assessment and Plan: Patient is status post left total knee arthroplasty by Dr. Frank on 04/11/2022 Patient tolerated procedure well Continue PT/OT Management per Orthopedic surgery (2) Pre-syncope: Code(s): R55 - Syncope and collapse Status: Acute Assessment and Plan: Patient with episode of lightheadedness and presyncope while walking to the bathroom yesterday Suspect this to be vasovagal secondary to pain response EKG with normal sinus rhythm Received IV fluid bolus x2 yesterday with improvement in symptoms Fall precautions (3) Orthostatic hypotension: Code(s): I95.1 - Orthostatic hypotension Status: Acute Assessment and Plan: patient noted to be orthostatic with 38 point drop in systolic BP from supine to sitting position she has been adequately rehydrated s/p IV fluid bolus continue Jane hose she is not on any antihypertensives encouraged adequate p.o. fluid intake continue to monitor orthostatics qShift (4) Hypothyroidism (acquired): Code(s): E03.9 - Hypothyroidism, unspecified Status: Acute Assessment and Plan: TSH is within normal limits Continue levothyroxine (5) Anemia: Code(s): D64.9 - Anemia, unspecified Status: Acute Assessment and Plan: 3 point decline in hemoglobin from baseline labs 1 month prior suspect secondary to acute surgical blood loss no active bleeding H&H stable today continue to monitor CBC Subjective Date/time seen: 04/13/22 13:40 Interval history: Date of service:? 04/12/2022 Lindsay Landry is a 66 year old female with a history of breast cancer s/p lumpectomy maintained on tamoxifen, hypothyroidism, hyperlipidemia, osteoarthritis who is status post left total knee arthroplasty. she is feeling better today. Her pain is better controlled at this time. Currently she rates her left knee pain as 5/10. When she is participating in therapy and moving around, she describes a burning sensation in the knee that increases in pain to 8/10. She does feel worn out and fatigued today. She has been getting up to the bedside commode with assistance. This morning she had a very brief episode of lightheadedness that was much less significant than what she experienced yesterday. It did not last for very long and she did not feel that she would pass out. She denies abdominal pain, nausea, vomiting, fever, chills, shortness of breath, cough, chest pain. Her last bowel movement was 3 days ago before her surgery. Review of Systems Review of Systems: All systems reviewed & are unremarkable except as noted in HPI and below Exam Narrative: General: Thin, well-appearing 62-year-old female, supine in bed, comfortable, NARD Neuro: awake, alert and oriented x4, speech clear, no focal neuro deficits noted HEENMT: normocephalic, atraumatic, EOMI, sclerae anicteric, moist oral mucosa Respiratory: clear to auscultation bilaterally, nonlabored breathing Cardio: regular rate, regular rhythm with S1-S2 Abdomen: nondistended, normoactive bowel sounds, soft, nontender to palpation Extremities: Left knee covered with Eliu bandage and ice pack, slightly tender to palpation at distal thigh, bilateral lower extremities with trace edema, eliu wrap to right extremity, JANE hose on left extremity, BLE no erythema or tenderness to palpation, DP pulses 2+ bilaterally Skin: no rashes or lesions, warm and dry Psych: appropriate mood and affect, judgment and insight intact Objective Data Vital Signs Vital Signs: Vital Signs - 24 hr 04/12/22 14:08 04/12/22 14:22 04/12/22 14:20 Temperature 98.3 F Pulse Rate 83 Respiratory Rate 18 Blood Pressure 114/46 L 113/45 L Pulse Oximetry 100 Oxygen Delivery Room Air
--- NOTE | 2022-04-13 13:47 | PM.PNORT ---
Progress Note: A&P Assessment and Plan (1) Status post total left knee replacement: Code(s): Z96.652 - Presence of left artificial knee joint Status: Acute Assessment and Plan: Postop day 2: Left total knee arthroplasty. Patient tolerated procedure well. Patient had near syncopal episodes yesterday. Likely due to pain response. She is feeling better today however when attempting stairs with PT she was having difficulty with her quad function. PT felt she was unsafe to return home today. I agree with this assessment. Will keep patient another night and reassess tomorrow. Subjective Subjective Date/Time Seen: 04/13/22 13:47 Interval history: Patient feeling better today. Only one episode of dizziness earlier this morning. Pain is more controlled today. Review of Systems Review of Systems: All systems reviewed & are unremarkable except as noted in HPI and below Exam Narrative: 66-year-old overweight female. Resting comfortably in bed. Alert and oriented x3. No acute distress. Wearing compression socks bilaterally. Dressing intact with no drainage. Moderate swelling. No ecchymosis. No erythema. No hematoma. No warmth. Range of motion limited due to pain. Poor quad function when doing stairs. Calf nontender. Neurologic status intact. No varicosities. Distal pulses palpable. Light touch sensation intact. Good capillary refill. Objective Data Vital Signs Vital Signs: Vital Signs - 24 hr 04/12/22 14:08 04/12/22 14:22 04/12/22 14:20 Temperature 98.3 F Pulse Rate 83 Respiratory Rate 18 Blood Pressure 114/46 L 113/45 L Pulse Oximetry 100 Oxygen Delivery Room Air 04/12/22 17:51 04/12/22 17:51 04/12/22 17:56 Temperature Pulse Rate 88 88 96 Respiratory Rate 18 Blood Pressure 140/53 L 140/53 L 102/40 L Pulse Oximetry 100 Oxygen Delivery 04/12/22 17:59 04/12/22 20:28 04/12/22 20:00 Temperature 97.0 F L Pulse Rate 110 H 80 Respiratory Rate 21 H Blood Pressure 90/33 L 129/42 L Pulse Oximetry 100 Oxygen Delivery Room Air 04/13/22 00:30 04/13/22 05:25 04/13/22 09:19 Temperature 97.7 F 98.0 F Pulse Rate 86 82 Respiratory Rate 20 20 Blood Pressure 133/48 L 134/53 L Pulse Oximetry 98 98 98 Oxygen Delivery Room Air 04/13/22 07:50 04/13/22 10:00 Temperature 98.3 F Pulse Rate 83 Respiratory Rate 20 Blood Pressure 140/62 Pulse Oximetry 98 Oxygen Delivery Room Air Intake/Output Intake/Output: Intake & Output 04/10/22 04/11/22 04/12/22 04/13/22 23:59 23:59 23:59 23:59 Intake Total 2090 1070 740 Output Total 300 1200 900 Balance 1790 -130 -160 Meds/Results Medications: Active Medications Generic Name Dose Route Start Last Admin Trade Name Freq PRN Reason Stop Dose Admin Aspirin 81 mg 04/11/22 17:00 04/13/22 07:51 Aspirin 81 Mg Enteric Tablet PO 81 mg BID ARISTEO Administration Cyclobenzaprine HCl 10 mg 04/11/22 15:57 04/13/22 07:50 Cyclobenzaprine Hcl 10 Mg Tablet PO 10 mg Q8H PRN Administration Spasms Diphenhydramine HCl 25 mg 04/11/22 15:57 Diphenhydramine Hcl Inj 50 Mg/Ml Vial IV PUSH Q6H PRN Itching Famotidine 20 mg 04/11/22 21:00 04/13/22 07:51 Famotidine 20 Mg Tablet PO 20 mg Q12HR ARISTEO Administration Levothyroxine Sodium 125 mcg 04/12/22 06:30 04/13/22 05:38 Levothyroxine Sodium 125 Mcg Tablet PO 125 mcg DAILY@0630 ARISTEO Administration Naloxone HCl 0.1 mg 04/11/22 15:57 Naloxone Hcl 0.4 Mg/Ml Vial IV PUSH Q2M PRN Opiate Reversal Ondansetron HCl 4 mg 04/11/22 15:57 Ondansetron Inj 4 Mg/2 Ml Vial IV PUSH Q4H PRN Nausea And Vomiting Oxycodone HCl 5 mg 04/11/22 15:57 04/13/22 05:38 Oxycodone Hcl (*Crx) 5 Mg Tab Ir PO 5 mg Q4H PRN Administration Pain Rated 4-6 Oxycodone HCl 10 mg 04/11/22 15:57 04/13/22 09:45 Oxycodone Hcl (*Crx) 5 Mg Tab Ir PO 10 mg Q4H PRN Administration Pain Rated
--- NOTE | 2022-04-13 14:13 | PC.NURSE ---
Patient had a hard time with the stairs with PT. Informed Maximilian about the difficulty and for the patient's safety, she will stay one more night and work with PT/OT again in the morning. Shabana from notified as well.
[2022-04-14] VITALS (8 sets, daily range): BP systolic 84–130; BP diastolic 41–80; PULSE 78–110; RESP 18–21; TEMP 36.2–36.8; O2SAT 95–100
[2022-04-14] MEDS: oxyCODONE HCL (*CRX) 5 MG TAB IR 10 MG PO (05:18)
[2022-04-14] MEDS: LEVOTHYROXINE SODIUM 125 MCG TABLET PO (05:18)
[2022-04-14 05:27] LABS: Hematocrit 26.5 % (37.0-47.0); Hemoglobin 8.8 g/dL (12.0-15.0); Mean Corpuscular HGB Conc 33.2 g/dl (32-36); Mean Corpuscular Hemoglobin 32.2 pg (26-34); Mean Corpuscular Volume 97.1 fl (80-100); Mean Platelet Volume 9.8 fl (7.4-10.4); Platelet Count Result 166 k/mm3 (150-375); Red Blood Count 2.73 M/mm3 (4.2-5.4); Red Cell Distribution Width 12.5 % (11.5-14.5); White Blood Count 7.6 K/mm3 (4.5-10.0)
[2022-04-14 05:34] LABS: Anion Gap 4 mmol/L (8-16); Blood Urea Nitrogen 12 mg/dL (7-17); Calcium 8.1 mg/dL (8.4-10.2); Carbon Dioxide 27 mmol/L (22-30); Chloride 105 mmol/L (98-107); Estimated CRCL calculation 72 ml/min; Estimated Glomerular Filt Rate > 60; Glucose 116 mg/dL (65-110); Potassium 3.2 mmol/L (3.4-5.0); Sodium 136 mmol/L (137-145)
[2022-04-14] MEDS: SENNA/DOCUSATE SODIUM TABLET 2 TAB PO (08:42)
[2022-04-14] MEDS: predniSONE 5 MG TABLET PO (08:42)
[2022-04-14] MEDS: ASPIRIN 81 MG ENTERIC TABLET PO (08:42)
[2022-04-14] MEDS: polyethylene glycoL 3350 17 GM POWD.PACK PO (08:43)
[2022-04-14] MEDS: FAMOTIDINE 20 MG TABLET PO (08:43)
[2022-04-14] MEDS: TAMOXIFEN CITRATE (*CHEMO) 10 MG TABLET 20 MG PO (08:43)
[2022-04-14] MEDS: POTASSIUM CHLORIDE 20 MEQ TABLET 40 MEQ PO (10:55)
[2022-04-14] MEDS: ACETAMINOPHEN 325 MG TABLET 650 MG PO (10:56)
[2022-04-14] MEDS: BISACODYL 10 MG SUPPOSITORY RECTAL (12:47)
--- NOTE | 2022-04-14 12:50 | PM.IMPN ---
Progress Note: A&P Assessment and Plan (1) Status post total left knee replacement: Code(s): Z96.652 - Presence of left artificial knee joint Status: Acute Assessment and Plan: Patient is status post left total knee arthroplasty by Dr. Frank on 04/11/2022 Patient tolerated procedure well Management per Orthopedic surgery (2) Pre-syncope: Code(s): R55 - Syncope and collapse Status: Acute Assessment and Plan: Patient with episode of lightheadedness and presyncope while walking to the bathroom on 04/12 Suspect this to be vasovagal secondary to pain response vs orthostasis EKG with normal sinus rhythm Received IV fluid bolus x2 with improvement in symptoms Fall precautions implemented (3) Orthostatic hypotension: Code(s): I95.1 - Orthostatic hypotension Status: Acute Assessment and Plan: patient noted to have significant decline in BP with positional changes she has been adequately rehydrated s/p IV fluid bolus continue Jane hose she is not on any antihypertensives encouraged adequate p.o. fluid intake blood pressures improved. repeat orthostatics this morning with manual BP were negative (4) Hypothyroidism (acquired): Code(s): E03.9 - Hypothyroidism, unspecified Status: Acute Assessment and Plan: TSH is within normal limits Continue levothyroxine (5) Anemia: Code(s): D64.9 - Anemia, unspecified Status: Acute Assessment and Plan: 3 point decline in hemoglobin from baseline labs 1 month prior suspect secondary to acute surgical blood loss no active bleeding H&H remaining stable Subjective Date/time seen: 04/14/22 12:50 Interval history: Date of service:? 04/13/2022 Lindsay Landry is a 66 year old female with a history of breast cancer s/p lumpectomy maintained on tamoxifen, hypothyroidism, hyperlipidemia, osteoarthritis who is status post left total knee arthroplasty. she is feeling very well today. She briefly felt lightheaded this morning and knew that she needed to sit down. She felt better promptly after sitting. She has not had any additional episodes of lightheadedness today. Planning for return home today. Patient feels comfortable with this. Her will be present to assist her as needed. Denies nausea, vomiting, abdominal pain, chest pain, shortness of breath, fever, chills. Review of Systems Review of Systems: All systems reviewed & are unremarkable except as noted in HPI and below Exam Narrative: General: Thin, well-appearing 62-year-old female, supine in bed, comfortable, NARD Neuro: awake, alert and oriented x4, speech clear, no focal neuro deficits noted HEENMT: normocephalic, atraumatic, EOMI, sclerae anicteric, moist oral mucosa Respiratory: clear to auscultation bilaterally, nonlabored breathing Cardio: regular rate, regular rhythm with S1-S2 Abdomen: nondistended, normoactive bowel sounds, soft, nontender to palpation Extremities: Left knee covered with Eliu bandage and ice pack, slightly tender to palpation at distal thigh, bilateral lower extremities with trace edema, JANE hose on left extremity, BLE no erythema or tenderness to palpation, DP pulses 2+ bilaterally Skin: no rashes or lesions, warm and dry Psych: appropriate mood and affect, judgment and insight intact Objective Data Vital Signs Vital Signs: Vital Signs - 24 hr 04/13/22 14:05 04/13/22 20:56 04/13/22 20:00 Temperature 98.4 F 97.4 F L 97.4 F L Pulse Rate 89 95 95 Respiratory Rate 19 20 20 Blood Pressure 126/62 105/44 L 105/44 L Pulse Oximetry 100 99 99 Oxygen Delivery 04/13/22 20:00 04/14/22 01:04 04/14/22 07:39 Temperature 97.6 F 97.6 F Pulse Rate 95 84 78 Respiratory Rate 20 18 20 Blood Pressure 124/52 L 114/41 L Pulse Oximetry 99 95 98 Oxygen Delivery Room Air 04/14/22 07:40 04/14/22 07:40 04/14/22 08:23 Temperature 98.2 F 97.2 F L Pulse
--- NOTE | 2022-04-14 13:20 | PM.DS ---
DS: Admitting Diagnosis Discharge Date 04/14/22 Admitting Diagnosis Left knee OA DS: Discharge Diagnosis Discharge Diagnosis (1) Status post total left knee replacement: Code(s): Z96.652 - Presence of left artificial knee joint Status: Acute Assessment and Plan: Postop day 3: Left total knee arthroplasty. Patient tolerated procedure well. Patient had near syncopal episodes when standing for long periods of time. She is felling much better today. Likely due to pain response. Patient progressing better with PT today. She is having issues with her quad function. Will order Home health for the 2 weeks prior to starting outpatient PT. We had a lengthy discussion regarding postoperative wound care, limitations, expectations, and exercises. Patient shows good understanding. He has had initial physical therapy and is tolerating it well. DVT prophylaxis: 81 mg baby aspirin b.i.d. for 14 days. Pain medication: Percocet. Diclofenac. Prednisone. Patient has followup appointment with Dr. Frank in 3 weeks. DS: Summary Hospital Course Reason for hospitalization: Total knee arthroplasty Hospital Course: Patient had issues with orthostatic hypotension and low BP when up for too long. Patient is feeling much better today. Instructions given on how to avoid this. Also having trouble with quad function. Will Order home health PT. Time Spent with Patient Time attestation: Total time spent providing and/or coordinating discharge services: Exam Narrative: 66-year-old overweight female. Resting comfortably in bed. Alert and oriented x3. No acute distress. Wearing compression socks bilaterally. Dressing intact with no drainage. Moderate swelling. No ecchymosis. No erythema. No hematoma. No warmth. Range of motion limited due to pain. Better flexion today. Poor quad function. Calf nontender. Neurologic status intact. No varicosities. Distal pulses palpable. Light touch sensation intact. Good capillary refill. DS: Data Data Completed and Pending Labs on day of discharge: Labs from last 24 hours 04/14/22 04/14/22 05:01 05:01 WBC 7.6 RBC 2.73 L Hgb 8.8 L Hct 26.5 L MCV 97.1 MCH 32.2 MCHC 33.2 RDW 12.5 Plt Count 166 MPV 9.8 Sodium 136 L Potassium 3.2 L Chloride 105 Carbon Dioxide 27 Anion Gap 4 L BUN 12 Creatinine 0.70 Estim Creat Clear Calc 72 Estimated GFR > 60 Glucose 116 H Calcium 8.1 L Discharge Plan Discharge Attending physician on discharge: Jose Eduardo Frank Consulting providers: Kerri Venegas ; Joseline Paulson Discharging Clinician: Courtney Stallings Patient Disposition: Home Health Service Activity: may shower and no driving Diet: as tolerated Wound Care Instructions: follow printed instructions Discharge Instructions: Orthopedic instructions: See green instruction sheets. Per Care Coordination Patient is arranged to have [facility] services for PT 2-3 times a week to work on bending and straightening knee after knee surgery for 2 weeks. [phone] RN please fax completed discharge instructions to [phone] Hospitalist discharge instructions: Your blood pressure was found to decline when you stand up (orthostatic hypotension). It is important that you stay very well hydrated to help your blood pressure from decreasing. Wear compression stockings when you are up and out of bed. Take your time when getting up. Patient Instructions: Antibiotic Form Stand Alone Forms: General Discharge Information Follow-up/Referrals: Courtney Stallings PA [Physician Manager Risk Management] - Discharge Medications: New prednisone 5 mg tablet 5 mg PO DAILY 21 Days Qty: 21 0RF aspirin 81 mg tablet,delayed release (DR/EC) 81 mg PO BID 14 Days Qty: 28 0RF oxycodone-acetaminophen 5-325 mg tablet 1 - 2 tablet PO Q4-6H MDD 6 PRN (Reason: pain) Qty: 30 0RF Continued a
== END 2022-04-14 14:50 | disposition home health service (06) ==
LOC: ANHSURGERY 13:56 → ANH2MED 13:56
PROVIDERS: Family Medicine; Physician Assistant; Admitting Provider Orthopaedic Surgery; PCP Family Medicine; Visit Provider Orthopaedic Surgery
PROC: (CPT 27447; principal; 2022-04-11 10:30)
DX: M17.12 Unilateral primary osteoarthritis, left knee (principal); E03.9 Hypothyroidism, unspecified; D64.9 Anemia, unspecified; I95.1 Orthostatic hypotension; Z96.651 Presence of right artificial knee joint; E66.9 Obesity, unspecified; Z68.36 Body mass index [BMI] 36.0-36.9, adult; E53.8 Deficiency of other specified B group vitamins; E78.5 Hyperlipidemia, unspecified; G89.18 Other acute postprocedural pain; Z85.3 Personal history of malignant neoplasm of breast; Z87.891 Personal history of nicotine dependence; Z72.89 Other problems related to lifestyle; Z79.1 Long term (current) use of non-steroidal anti-inflammatories (NSAID); Z79.891 Long term (current) use of opiate analgesic
CPT/HCPCS: 27447; 64447; 36415; 73560; 80048; 80053; 85025; 85027; 86850; 86900; 86901; 93005; 97110; 97116; 97161; 97165; 97530; 97535; A9270; C1713; C1776; G0378; J0131; J0171; J0690; J1170; J1885; J2250; J2795; J3010; J7040; J7120; J7512

== ENCOUNTER 2022-08-14 11:57 | Emergency (ER) | payer MEDICARE, OTHER, SELFPAY ==
--- NOTE | 2022-08-14 12:40 | ED.URI ---
HPI - URI/Sore Throat General Chief Complaint: Upper Respiratory Infection Stated Complaint: Sore Throat, Ears Irritation Time Seen by Provider: 08/14/22 12:40 Source: patient, RN notes reviewed and old records reviewed Mode of arrival: ambulatory Limitations: no limitations History of Present Illness HPI Narrative: 67-year-old female presents to the [facility] with bilateral ear pain and a sore throat since last night. Reports chills but no fevers. Has taken Tylenol. Reports history of tonsillitis tonsil stones. Related Data Home Medications Medication Instructions Recorded Confirmed ascorbic acid (vitamin C) 1,000 mg 1 g PO QAM 06/22/21 08/14/22 tablet calcium carbonate 600 mg-vitamin 1 tablet PO QAM 07/15/21 08/14/22 D3 5 mcg (200 unit) tablet tamoxifen 20 mg tablet 20 mg PO QAM 07/15/21 08/14/22 levothyroxine 137 mcg tablet 137 mcg PO DAILY 08/14/22 08/14/22 (Synthroid) Allergies Allergy/AdvReac Type Severity Reaction Status Date / Time chlorhexidine Allergy Mild Rash Verified 07/31/22 07:55 [From Hibiclens] morphine Allergy Unknown Skin Verified 07/31/22 07:55 irritation Penicillins Allergy Unknown Skin Verified 07/31/22 07:55 irritation Review of Systems Review of Systems: All systems reviewed & are unremarkable except as noted in HPI and below Constitutional: Constitutional: Reports as per HPI, Reports chills and Denies fever(s) Eyes: Eyes: Reports no additional eye complaints ENT: Reports as per HPI Cardiovascular: Cardiovascular: Reports no additional cardiovascular complaints Respiratory: Respiratory: Reports no additional respiratory complaints Gastrointestinal: Gastrointestinal: Reports no additional gastrointestinal complaints Musculoskeletal: Musculoskeletal: Reports no additional musculoskeletal complaints Integumentary/Breasts: Skin/Breast: Reports system reviewed and no additional complaints, except as docu Neurologic: Reports system reviewed and no additional complaints, except as documented Psychiatric: Psychiatric: Reports no additional psychiatric complaints Allergic/Immunologic: Allergic/Immunologic: Reports no additional allergic/immunologic complaints PMFSH Past Medical History Medical History Breast cancer History of nicotine use Hyperlipidemia LDL goal <100 Hypothyroidism determined by thyroid function test Kidney stone Obesity On statin therapy Primary localized osteoarthritis of both knees Vitamin D deficiency Xanthelasma of eyelid Surgical History Surgical History H/O section History of dilation and curettage numerous after miscarriages History of total left knee replacement (~04/11/22) History of total right knee replacement (~10/07/21) Hx of hysterectomy Family History Family History Sibling Family history of thyroid disease Hypertension Grandparent Diabetes mellitus Acute myocardial infarction Mother Hypertension Family history of chronic obstructive pulmonary disease Father Family history of cardiovascular disease Family history of coronary artery disease Patient's father is in good health Other Osteoporosis Social History Social History Social History: Lindsay Landry lives at home with her . She is typically independent in her daily activities. She is retired. Her primary care provider is Dr. Li. She designates her as her surrogate decision maker and she would like to be a full code. Smoking packs per day: 0.75 Smoking cigarettes per day: 15.0 Years smoked: 20 Smoking pack-years: 15.00 Smoking status: Former smoker Tobacco type: cigarettes Second hand tobacco smoke exposure: No Smoking end date: 10/06/18 Alcohol intake: current Drinks per week: 1 A
[2022-08-14 12:43] VITALS: BP 131/48; PULSE 70; RESP 18; TEMP 36.2; O2SAT 100
== END 2022-08-14 13:17 | disposition home or self-care (01) ==
PROVIDERS: Emergency Provider Nurse Practitioner; PCP Family Medicine
DX: H65.03 Acute serous otitis media, bilateral (principal); J35.8 Other chronic diseases of tonsils and adenoids; Z87.891 Personal history of nicotine dependence; E78.5 Hyperlipidemia, unspecified; E03.9 Hypothyroidism, unspecified; E66.9 Obesity, unspecified; Z68.34 Body mass index [BMI] 34.0-34.9, adult; E55.9 Vitamin D deficiency, unspecified; Z85.3 Personal history of malignant neoplasm of breast; Z96.653 Presence of artificial knee joint, bilateral
CPT/HCPCS: 87081; 87880; 99213; G0463

== ENCOUNTER 2022-12-21 09:45 | Outpatient (CLI) | payer MEDICARE, OTHER, SELFPAY ==
--- NOTE | ~2022-12-21 | XR_ITS ---
Lumbosacral Spine: AP and lateral views Clinical History: Pain Findings: The normal lordotic curve is maintained. The vertebral bodies and posterior elements are i ntact. The intervertebral disc spaces are preserved. There is facet arthropathy at L4-L5 and L5-S1. The sacroiliac joints are normally outlined. There are atherosclerotic calcifications of the aorta. Impression: Facet arthropathy at the lower lumbar spine, as detailed above. Reviewed, dictated and finalized at location . Impression: Facet arthropathy at the lower lumbar spine, as detailed above.
== END 2022-12-21 09:46 | disposition home or self-care (01) ==
PROVIDERS: PCP Family Medicine; Visit Provider Physician Assistant Medical
DX: M54.30 Sciatica, unspecified side (principal)
CPT/HCPCS: 72110